=== PATIENT | male | born 1955 | race Caucasian/White ===

== ENCOUNTER 2017-01-26 06:46 | Inpatient (IN) | payer MEDICARE, MEDICAID ==
[~2017-01-26] VITALS: Ht 165.1 cm; Wt 93.0 kg
[~2017-01-26 06:46] MED LIST: AMLO5TAB4 PO; ASPI-664 PO; ATOR20TA38 PO; CALC667C PO; CLOP75TA4 PO; DOCU-144 PO; ERGO500014 PO; ISOS60TA PO; LANT3I SC; LEVO200T6 PO; LISI40TA9 PO; METO25TA7 PO; NIT4 SL; NOVO3I SC; POLY17PO6 PO; ROSU40TA35 PO; SEVE800T10 PO; VIT1TAB.4 PO
[2017-01-26 07:35] LABS: ADD SCAN DIFF NO
--- NOTE | 2017-01-26 07:36 | RADRPT ---
PROCEDURE: XR Chest. CLINICAL INDICATION: trauma TECHNIQUE: Portable single view of the chest COMPARISON: 11/14/2016 FINDINGS: Again seen are changes from median sternotomy and CABG with unipolar pacemaker. Cardiomegaly is aga in seen. Reduced lung volumes with pulmonary vascular congestion. Increased left base opacity may be due to cardiomegaly but underlying airspace disease cannot be excluded. No large effusion is see n. IMPRESSION: No significant interval change. Cardiomegaly. Slightly increased left retrocardiac opacity may all be due to cardiomegaly although underlying airspace disease cannot be completely excluded. Lateral view could be obtained if indicated clinically. RPTAT: [facility] Physician Charla Date Time Electronically viewed and signed by Mary Jo Chandler Physician on 01/26/2017 07:36 DONNA/
[2017-01-26 07:40] LABS: BASOPHIL # 0.1 10^3/ul (0.0-0.1); EOSINOPHILS # 0.3 10^3/ul (0.0-0.5); EOSINOPHILS % 2.4 % (0.0-7.0); HEMATOCRIT 31.7 % (42.0-52.0); HEMOGLOBIN 10.1 g/dl (14.0-18.0); LYMPHOCYTES # 1.9 10^3/ul (0.8-2.9); LYMPHOCYTES % 15.5 % (15.0-51.0); MEAN CORPUSCULAR HEMOGLOBIN 35.6 pg (29.0-33.0); MEAN CORPUSCULAR HGB CONC 31.9 g/dl (32.0-37.0); MEAN CORPUSCULAR VOLUME 111.6 fl (82.0-101.0); MEAN PLATELET VOLUME 10.7 fl (7.4-10.4); MONOCYTE # 1.3 10^3/ul (0.3-0.9); MONOCYTES % 10.3 % (0.0-11.0); NEUTROPHIL # 8.6 10^3/ul (1.6-7.5); NEUTROPHILS % 70.3 % (39.0-77.0); PLATELET COUNT 132 10^3/UL (140-415); RED BLOOD COUNT 2.84 10^6/ul (4.70-6.10); RED CELL DISTRIBUTION WIDTH 13.2 % (11.5-14.5); WHITE BLOOD COUNT 12.3 10^3/ul (4.8-10.8)
[2017-01-26 08:05] LABS: ALBUMIN 4.5 g/dl (3.3-4.9)
[2017-01-26 08:06] LABS: POTASSIUM 4.9 mmol/L (3.5-5.1)
[2017-01-26 08:08] LABS: ALBUMIN/GLOBULIN RATIO 1.36; BILIRUBIN,INDIRECT 0.1 mg/dl (0-1.1); BILIRUBIN,TOTAL 0.1 mg/dl (0.2-1.3); CREATININE 8.2 mg/dl (0.61-1.24); TOTAL PROTEIN 7.8 g/dl (6.1-8.1)
[2017-01-26 08:09] LABS: CALCIUM 10.7 mg/dl (8.4-10.2)
--- NOTE | 2017-01-26 08:12 | RADRPT ---
PROCEDURE: CT Brain without. CLINICAL INDICATION: Status post fall, concern for bleed, history of dementia. TECHNIQUE: A CT of the brain was performed on multidetector high-resolution CT scanner utilizing a xial sections from the skull base through the vertex without contrast. The scan was reviewed in sof t tissue brain and high frequency resolution bone algorithm windows. Images were reviewed on a high -resolution PACS workstation. One or more the following does reduction techniques were utilized: Aut omated exposure control, adjustment of the mA/ or kV according to patient's size, or use of iterativ e reconstruction technique. The exam CTDI = 39.64 mGy and the DLP = 634.23 mGy-cm. COMPARISON: Brain CT 04/29/2016. FINDINGS: Multiple images are degraded by motion. The ventricles and sulci are mildly to moderately prominent indicative of volume loss. There is no i ntracranial hemorrhage, mass effect or midline shift. No abnormal intra-axial or extra-axial fluid collections are seen. The barnhart/white matter differentiation is preserved. There are mild to moderate scattered foci of hypoattenuation in the white matter, which are nonspeci fic in etiology but likely reflect chronic small vessel ischemic changes. There are mild to moderat e intracranial vascular calcifications consistent with atherosclerosis. The visualized paranasal sin uses demonstrate moderate mucosal thickening of left sphenoid and bilateral maxillary sinuses. There is mucoperiosteal thickening of the right maxillary sinus. The mastoid air cells are essentially cl ear. IMPRESSION: 1. No acute intracranial hemorrhage, transcortical infarction or mass effect. 2. Mild to moderate intracranial atherosclerosis and chronic small vessel ischemic changes. 3. Mild to moderate generalized cerebral volume loss. 4. Moderate paranasal sinus disease. RPTAT: HH .Nora Agarwal MD, MD Date Time Electronically viewed and signed by .Nora Agarwal MD, MD on 01/26/2017 08:11 .N/
--- NOTE | 2017-01-26 08:20 | ERA ---
ER Documentation Chief Complaint Date/Time DATE: 01/26/17 TIME: 08:18 Chief Complaint ALOC, FALL THIS MORNING AT THE FACILITY. NO KO HPI 61-year-old man brought in by EMS from [facility] for decreased mental status. He has a history of dementia and intermittent recurrent agitation and for agitation today nurses administered clonazepam. After clonazepam he became more sedate and out of concern they called 911. Patient does have a history of end-stage kidney disease and was recently dialyzed. He has had no vomiting or diarrhea, no fevers or chills, no complaints of chest pain or shortness of breath. ROS All systems reviewed and are negative except as per history of present illness. Medications Home Meds Active Scripts Polyethylene Glycol* (Miralax*) 17 Gm Powd.pack, 17 GM PO DAILY, #7 Prov:ZAIRA JACOBSON MD 11/15/15 Docusate Sodium* (Colace*) 100 Mg Capsule, 100 MG PO TID, #30 CAP Prov:ZAIRA JACOBSON MD 11/15/15 Nitroglycerin* (Nitrostat*) 25 Tab Subl, 0.4 MG SL Q5M Y for ANGINA, #30 Prov:TAPAN MCCLELLAND 05/21/15 Isosorbide Mononitrate* (Isosorbide Mononitrate*) 60 Mg Tabsr, 60 MG PO DAILY for 30 Days Prov:TAPAN MCCLELLAND 05/21/15 Atorvastatin Calcium* (Atorvastatin Calcium*) 20 Mg Tab, 20 MG PO HS for 30 Days Prov:TAPAN MCCLELLAND 05/03/15 Aspirin* (Aspirin* EC) 81 Mg Tabec, 81 MG PO DAILY for 30 Days Prov:TAPAN MCCLELLAND 05/03/15 Reported Medications Lisinopril* (Lisinopril*) 40 Mg Tablet, 40 MG PO DAILY, TAB 08/02/15 Metoprolol Succinate* (Toprol XL*) 25 Mg Tab.sr.24h, 25 MG PO DAILY, TAB 06/09/15 Insulin Aspart* (Novolog Insulin Pen*) 100 Unit/Ml Soln, 3 UNIT SC WITH MEALS, EA 06/09/15 Amlodipine Besylate* (Norvasc*) 5 Mg Tablet, 5 MG PO BID, TAB 05/24/15 Sevelamer Hcl* (Renagel*) 800 Mg Tablet, 800 MG PO WITH MEALS, TAB 05/19/15 Vit B Complex & C No.13/Fa/D3 (NEPHROCAPS QT TABLET) 1 Each Tab.rapdis, 1 EACH PO DAILY 05/19/15 Levothyroxine Sodium* (Levothyroxine Sodium*) 200 Mcg Tablet, 200 MCG PO AC BREAKFAST, TAB 05/19/15 Insulin Glargine* (Lantus*) 100 Unit/Ml Soln, 10 UNIT SC QAM, EA 05/19/15 Ergocalciferol* (Drisdol* (Vitamin D2)) 50,000 Unit Capsule, 74218 UNIT PO Q14D , CAP 05/19/15 Rosuvastatin Calcium* (Crestor*) 40 Mg Tablet, 40 MG PO HS, TAB 05/19/15 Clopidogrel Bisulfate* (Clopidogrel Bisulfate*) 75 Mg Tablet, 75 MG PO DAILY, TAB 05/19/15 Calcium Acetate* (Calcium Acetate*) 667 Mg Capsule, 667 MG PO WITH MEALS, CAP 05/19/15 Allergies Allergies: Coded Allergies: oxycodone (Verified Allergy, Severe, 10/01/16) PMhx/Soc Hypothyroidism, diabetes mellitus, coronary artery disease status post coronary artery bypass graft, hypertension, end-stage kidney disease, dementia with agitation, left upper extremity brachiobasilic fistula for dialysis History of Surgery: Yes (CABBAGE AV fistula) Anesthesia Reaction: No Hx 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 Disorder: Yes (Dementia, CVA, TIA) Hx Respiratory Disorders: No Hx Cardiac Disorders: Yes (Heart surgery,HTN, CAD,Arrythmia) Hx Psychiatric Problems: Yes (Dementia) Hx Miscellaneous Medical Probl: Yes (renal fail (dialysis T//S) DM) Hx Alcohol Use: No Hx Substance Use: No Hx Tobacco Use: No Smoking Status: Never smoker FmHx Family History: diabetes Physical Exam Vitals Vital Signs Date Time Temp Pulse Resp B/P Pulse Ox O2 Delivery O2 Flow Rate FiO2 01/26/17 10:23 96.8 58 17 112/68 99 Room Air 01/26/17 09:57 96.8 72 16 160/90 98 Room Air 01/26/17 07:27 54 18 155/75 98 Room Air 01/26/17 06:56 98.2 82 18 203/92 98 Physical Exam GENERAL: Well-developed, well-nourished, appears dehydrated. Afebrile HEENT: Dry mucous membranes, pink conjunctiva, no cervical spine tenderness or step-off deformities, no goiter, no jaundice or icterus, extraocular movements intact without pain. No submandibular induration, and no pharyngeal erythema NEURO: Anal 1, eyes closed, pupils equal round reactive to light, no focal deficits or facial asymmetry CARDIAC: Regular rate and rhythm, no murmurs rubs or gallops LUNGS: Clear bilaterally no wheezing crackles or stridor ABDOMEN: Soft nontender, no guarding, no rigidity, no rebound, no psoas sign no obturator sign. Normoactive bowel sounds SKIN: Warm and dry to touch, no abrasions, contusions, or hematomas, no lacerations, no ecchymosis, no target lesions, and without ulcers EXTREMITIES: No clubbing cyanosis or edema, calves are bilaterally symmetrical, no Homans sign, no popliteal cord sign. Distal pulses equal and bilateral PSYCH: Normal affect without agitation or irritability Result Diagram: 01/26/1772301/26/17 0724 Results 24 hrs Laboratory Tests Test 01/26/17 07:24 Alanine Aminotransferase (ALT/SGPT) 19IU/L Albumin 4.5g/dl Albumin/Globulin Ratio 1.36 Alkaline Phosphatase 88IU/L Anion Gap 22 Aspartate Amino Transf (AST/SGOT) 21IU/L Basophils # 0.110^3/ul Basophils % 1.0% Blood Urea Nitrogen 40mg/dl Calcium Level 10.7mg/dl Carbon Dioxide Level 31mmol/L Chloride Level 98mmol/L Creatinine 8.20mg/dl Direct Bilirubin 0.00mg/dl Eosinophils # 0.310^3/ul Eosinophils % 2.4% Free Thyroxine 0.85ng/dl Globulin 3.30g/dl Glucose Level 143mg/dl Hematocrit 31.7% Hemoglobin 10.1g/dl Indirect Bilirubin 0.1mg/dl Lipase 73U/L Lymphocytes # 1.910^3/ul Lymphocytes % 15.5% Mean Corpuscular Hemoglobin 35.6pg Mean Corpuscular Hemoglobin Concent 31.9g/dl Mean Corpuscular Volume 111.6fl Mean Platelet Volume 10.7fl Monocytes # 1.310^3/ul Monocytes % 10.3% Neutrophils # 8.610^3/ul Neutrophils % 70.3% Nucleated Red Blood Cells # 0.010^3/ul Nucleated Red Blood Cells % 0.0/100WBC Platelet Count 04386^3/UL Potassium Level 4.9mmol/L Red Blood Count 2.8410^6/ul Red Cell Distribution Width 13.2% Sodium Level 146mmol/L Total Bilirubin 0.1mg/dl Total Protein 7.8g/dl Troponin I 0.056ng/ml White Blood Count 12.310^3/ul Procedures/MDM IV line was established patient was placed on insurance processing clerk rhythm strip revealed a wide-complex bradycardia 50 bpm. Patient was afebrile. One view chest x-ray performed, read by me revealed cardiomegaly and a pacemaker in the right chest with sternotomy wires, no acute infiltrates, no pneumothorax. EKG performed, read by me revealed a paced rhythm at 50 bpm, left axis deviation , no concerning ST elevations or depressions noted. CT scan of the brain was performed is negative for acute bleed mass or shift. One view chest x-ray performed, read by me there is cardiomegaly and atelectatic changes bilaterally, no acute infiltrates, no pneumothorax. CBC was unremarkable, electrolytes revealed chronic kidney injury, troponin was negative, liver function tests were unremarkable. Patient will be admitted to [facility] for continued medical management and observation. Departure Diagnosis: Primary Impression: Altered level of consciousness Additional Impressions: End stage kidney disease Benzodiazepine overdose Qualified Code: T42.4X1A - Benzodiazepine overdose, accidental or unintentional, initial encounter Alzheimer's dementia Qualified Code: G30.8 - Alzheimer's dementia with behavioral disturbance, unspecified timing of dementia onset Condition: MELISA Givens MD Jan 26, 2017 08:20
[2017-01-26 08:21] LABS: TROPONIN-I 0.056 ng/ml (0.00-0.12)
[2017-01-26 10:23] VITALS: TEMP 96.8
[2017-01-26] MEDS: ASPIRIN (EC) 81 MG TAB PO SCH ×3 (10:54→14:34)
[2017-01-26] MEDS: CLOPIDOGREL 75 MG TAB PO SCH ×3 (10:54→14:34)
[2017-01-26 10:58] VITALS: Ht 165.1 cm; Wt 93.0 kg
[2017-01-26] MEDS ORDERED: NACL 0.9% 3 ML SYG IV SCH (11:00)
[2017-01-26] MEDS ORDERED: ONDANSETRON 4 MG INJ IV PRN (11:00)
[2017-01-26] MEDS ORDERED: NITROGLYCERIN (SL) 0.4 MG TAB SL PRN (11:00)
[2017-01-26] MEDS ORDERED: ACETAMINOPHEN 325 MG TAB PO PRN (11:00)
[2017-01-26] MEDS ORDERED: DOCUSATE SODIUM 100 MG CAP PO PRN (11:00)
[2017-01-26] MEDS ORDERED: GLUCOSE GEL 15 GRAM TUBE PO PRN ×2 (11:00)
[2017-01-26] MEDS ORDERED: GLUCOSE GEL 15 GRAM TUBE BUCCAL PRN (11:00)
[2017-01-26] MEDS ORDERED: ALBUTEROL/IPRATROPIUM (NEB) 3 ML AMP HHN PRN (11:00)
[2017-01-26] MEDS ORDERED: NA PHOSPHATE/BIPHOS 133 ML ENEMA PR PRN (11:00)
[2017-01-26] MEDS ORDERED: hydrALAzine 20 MG INJ IV PRN (11:00)
[2017-01-26] MEDS ORDERED: MAGNESIUM HYDROXIDE 30ML CUP PO PRN (11:00)
[2017-01-26] MEDS ORDERED: GLUCAGON 1 MG INJ IM PRN (11:00)
[2017-01-26] MEDS ORDERED: DEXTROSE 50% 50 ML SYRINGE IV PRN ×2 (11:00)
[2017-01-26 11:15] VITALS: BP 164/77; PULSE 52; RESP 18
[2017-01-26] MEDS: INSULIN ASPART [NOVOLOG] 3 ML PEN SC SCH ×2 (11:30→17:35)
[2017-01-26] MEDS: SEVELAMER 800 MG TAB PO SCH ×2 (11:30→17:35)
[2017-01-26] MEDS: MULTIVIT/CA CARB/B CMPLX/FA TAB PO SCH ×3 (12:00→14:34)
[2017-01-26] MEDS: SOD CHLORIDE 0.45% 1,000 ML IV SCH (14:12)
--- NOTE | 2017-01-26 17:39 | HP ---
Date/Time of Note Date/Time of Note DATE: 01/26/17 TIME: 17:35 Assessment/Plan VTE Prophylaxis VTE Prophylaxis Intervention: SCD's Lines/Catheters IV C[facility]ter [facility]from [facility] Saline Lock Urinary Cath still in place: No Assessment/Plan Chief Complaint/Hosp Course Impression and plan 1. Altered level of consciousness. Likely exacerbation of underlying dementia mixed with proposed benzodiazepine overdose. Patient more alert at this time. Continue IV hydration. Check reeder cultures to rule out any other etiology. Of note CT scan of the brain was negative for any acute intracranial finding. Continue neuro checks. Sitter at bedside. 2. History of CAD status post CABG. Continue antiplatelet therapy. Continue optimization of his cardiovascular medications. 3. History of diabetes mellitus. Follow-up on A1c. Continue insulin regimen. Will adjust as needed. 4. Hypertension. Will provide with antihypertensives and adjust as needed 5. Dyspnea. Continue on statin medication 6. End-stage renal disease. Nephrology is consulted. Plan for dialysis per nephrology. Admission process 40 minutes Discussed plan of care with Dr. Bhardwaj Problems: HPI/ROS Admit Date/Time Admit Date/Time Jan 26, 2017 at 10:31 Hx of Present Illness This is a 61-year-old male with history of end-stage renal disease, on dialysis , coronary artery disease status post CABG, dementia, psych disorder, who [facility] secondary to altered level of consciousness. Patient does have history of agitation and from report patient was agitated and nurses at the [facility] went forward with providing the patient with giving benzodiazepine. Patient at that moment became more altered and was brought in by [facility]. Of note for history not fully obtained as patient is not alert or oriented. He only speaks patient is able to make full sentences but is incoherent. On further examination patient did have CT scan of the brain that was negative for any acute intracranial hemorrhage or infarction or mass-effect. There was a moderate intracranial atherosclerosis and chronic small vessel ischemic changes. There is also seen mild to moderate generalized cerebral volume loss. Patient was seen with some leukocytosis however likely reactive. Patient remains afebrile. Noted with some hypertension likely secondary to his agitation. On presentation patient appeared much calmer. He was reported to be abusive to the nurses. We will evaluate him for the aforementioned issues ROS 12 point review of systems obtained and entirely negative except mentioned in history of present illness PMH/Family/Social Past Medical History Medical/surgical history end-stage renal disease, on dialysis, coronary artery disease status post CABG, dementia, psych disorder Past Surgical History Past Surgical Hx: coronary bypass surgery Social History Smoking Status: Never smoker Exam/Review of Systems Vital Signs Vitals Vital Signs Date Time Temp Pulse Resp B/P Pulse Ox O2 Delivery O2 Flow Rate FiO2 01/26/17 11:15 97.5 52 18 164/77 96 Room Air Exam Exam General: More calm. Alert to verbal response. Eyes: Pupils equal round reactive to light Neck: Supple nontender, no JVD Cardiac: S1-S2 auscultated regular rate Pulmonary: Minimally diminished at lung bases GI: Soft nontender nondistended Extremities: Noted with left AV fistula on upper extremity of left side Skin: [Clean dry and intact] Neurologic: Alert to self. Disoriented to situation place and time Labs Result Diagram: 01/26/1724 01/26/17 0724 Medications Medications Current Medications Ondansetron HCl (Zofran Inj) 4 mg Q6H PRN IV NAUSEA AND/OR VOMITING; Start 01/26 at 11:00 Acetaminophen (Tylenol Tab) 650 mg Q6H PRN PO PAIN LEVEL 1-3 OR FEVER; Start at 11:00 Acetaminophen/ Hydrocodone Bitart (Vernal (5/325)) 1 tab Q6H PRN PO MODERATE PAIN LEVEL 4-6; Start 01/26/17 at 11:00 Morphine Sulfate (morphine) 2 mg Q4H PRN IV SEVERE PAIN LEVEL 7-10; Start at 11:00 Docusate Sodium (Colace) 100 mg Q12H PRN PO CONSTIPATION; Start 01/26/17 at 11: 00 Magnesium Hydroxide (Milk Of Mag) 30 ml DAILY PRN PO CONSTIPATION; Start at 11:00 Sodium Biphosphate/ Sodium Phosphate (Fleet Enema) 133 ml DAILY PRN [place] CONSTIPATION; Start 01/26/17 at 11:00 Pantoprazole 40 mg 40 mg DAILY@06 IV ; Start 01/27/17 at 06:00 Sodium Chloride (1/2 NS) 1,000 ml @ 75 mls/hr [id number] IV Last administered on 01/26/17t 14:12; Admin Dose 75 MLS/HR; Start 01/26/17 at 10:40 Hydralazine HCl (Apresoline) 10 mg Q6H PRN IV ELEVATED BLOOD PRESSURE; Start at 11:00 Nitroglycerin (Nitroglycerin (Sl Tab) 0.4 Mg) 1 tab Q5M PRN SL ANGINA; Start at 11:00 Aspirin (Halfprin) 81 mg DAILY PO ; Start 01/26/17 at 10:54 Clopidogrel Bisulfate (plaVIX) 75 mg DAILY PO ; Start 01/26/17 at 10:54 Insulin Glargine (Lantus) 10 unit QAM SC ; Start 01/27/17 at 09:00 Rosuvastatin Calcium (Crestor) 40 mg HS PO ; Start 01/26/17 at 21:00 Multivit/Ca Carb/ B Cmplx/FA/Prenat (Muna-Suraj) 1 tab DAILY PO ; Start 01/26/17 at 12:00 Miscellaneous Information 1 ea NOTE XX ; Start 01/26/17 at 11:00 Glucose (Glutose) 15 gm Q15M PRN PO DECREASED GLUCOSE; Start 01/26/17 at 11:00 Glucose (Glutose) 22.5 gm Q15M PRN PO DECREASED GLUCOSE; Start 01/26/17 at 11:00 Dextrose (D50w Syringe) 25 ml Q15M PRN IV DECREASED GLUCOSE; Start 01/26/17 at 11:00 Dextrose (D50w Syringe) 50 ml Q15M PRN IV DECREASED GLUCOSE; Start 01/26/17 at 11:00 Glucagon (Glucagen) 1 mg Q15M PRN IM DECREASED GLUCOSE; Start 01/26/17 at 11:00 Glucose (Glutose) 15 gm Q15M PRN BUCCAL DECREASED GLUCOSE; Start 01/26/17 at 11: 00 Olanzapine (Zyprexa) 10 mg DAILY PO ; Start 01/26/17 at 17:30 TAPAN MCCLELLAND Jan 26, 2017 17:39
[2017-01-26] MEDS: OLANZAPINE 5 MG TAB PO SCH (17:53)
[2017-01-26] MEDS: ROSUVASTATIN CALCIUM 40 MG TABLET PO SCH (21:00)
[2017-01-26 21:39] VITALS: BP 134/68; PULSE 55; RESP 18
[2017-01-27] VITALS (11 sets, daily range): BP systolic 100–190; BP diastolic 55–109; PULSE 62–81; RESP 20
[2017-01-27] MEDS: PANTOPRAZOLE 40 MG INJ IV SCH (05:28)
[2017-01-27 06:23] LABS: ADD SCAN DIFF NO
[2017-01-27 06:42] LABS: POTASSIUM 4.8 mmol/L (3.5-5.1)
[2017-01-27 06:45] LABS: CREATININE 8.9 mg/dl (0.61-1.24)
[2017-01-27 06:46] LABS: CHOL/HDL RATIO 2.4 RATIO; MAGNESIUM 2.7 mg/dl (1.7-2.5); PHOSPHORUS 2.2 mg/dl (2.5-4.9)
[2017-01-27 06:53] LABS: BASOPHIL # 0.1 10^3/ul (0.0-0.1); BASOPHILS % 0.8 % (0.0-2.0); EOSINOPHILS # 0.2 10^3/ul (0.0-0.5); EOSINOPHILS % 1.1 % (0.0-7.0); HEMATOCRIT 30.4 % (42.0-52.0); HEMOGLOBIN 9.9 g/dl (14.0-18.0); LYMPHOCYTES % 6.9 % (15.0-51.0); MEAN CORPUSCULAR HEMOGLOBIN 35.5 pg (29.0-33.0); MEAN CORPUSCULAR HGB CONC 32.6 g/dl (32.0-37.0); MEAN PLATELET VOLUME 10.9 fl (7.4-10.4); MONOCYTE # 0.8 10^3/ul (0.3-0.9); MONOCYTES % 5.8 % (0.0-11.0); NEUTROPHIL # 11.9 10^3/ul (1.6-7.5); PLATELET COUNT 143 10^3/UL (140-415); RED BLOOD COUNT 2.79 10^6/ul (4.70-6.10); RED CELL DISTRIBUTION WIDTH 13.2 % (11.5-14.5)
[2017-01-27 07:17] LABS: THYROID STIMULATING HORMONE 34.5 MIU/L (0.465-4.680)
[2017-01-27] MEDS: INSULIN ASPART [NOVOLOG] 3 ML PEN SC SCH ×3 (07:35→17:35)
[2017-01-27] MEDS: SOD CHLORIDE 0.45% 1,000 ML IV SCH ×2 (07:53)
[2017-01-27] MEDS: INSULIN GLARGINE [LANtus] 3 ML PEN SC SCH (08:39)
[2017-01-27] MEDS: OLANZAPINE 5 MG TAB PO SCH (13:28)
--- NOTE | 2017-01-27 14:12 | CONS ---
DATE OF ADMISSION: 01/26/2017 DATE OF CONSULTATION: 01/27/2017 TYPE OF CONSULTATION: HISTORY OF PRESENT ILLNESS: The patient is a 61-year-old man with past history of end-sta ge renal disease, who apparently has been on hemodialysis for several years. Patient is dialyzed vi a a left upper arm AV fistula. His last hemodialysis was probably 3 days ago. He is a resident of a [facility] [place] [facility], and apparently has a history of dementia and agitation. According to the emergency room physician, the patient was administered clonazepam due to agitation, became more sed ated. 911 was called. He was brought to the [facility] Emergency Room. In the ER, the damian hemphill became more responsive. A CT scan of the brain revealed no acute lesions, and he was admitted to a medical floor. The patient also has a past history of hypertension, diabetes, and hypothyroid ism. PAST MEDICAL HISTORY: 1. End-stage renal disease. 2. Diabetes mellitus. 3. Hypothyroidism. 4. Coronary artery disease. 5. CVA. 6. Hypertension. PAST SURGICAL HISTORY: 1. CABG. 2. Pacemaker. 3. AV fistula creation. FAMILY HISTORY: Not obtainable. SOCIAL HISTORY: Per the chart, the patient is a former smoker. MEDICATIONS: 1. Lantus insulin. 2. Pantoprazole. 3. Crestor. 4. Zyprexa. 5. Muna-Suraj. 6. NovoLog. 7. Sevelamer. PHYSICAL EXAMINATION: VITAL SIGNS: Blood pressure 158/109, heart rate is 67, temperature is 97.9. GENERAL APPEARANCE: Reveals an elderly male, no distress. The patient is lethargic. He is arousab le. He is able to answer some simple questions, but is confused. Mouth reveals moist mucosa. NECK: Supple. CHEST: Lungs clear to auscultation. CARDIAC: Regular rate and rhythm. Normal S1, normal S2. ABDOMEN: Soft, nontender. EXTREMITIES: Without edema. There is a functioning fistula in the left upper extremity. LABORATORY DATA: Hemoglobin is 9.9, hematocrit is 30.4, white blood cell count of 14,000, platelet count is 143,000. Sodium is 143, potassium is 4.8, chloride is 99, CO2 27, BUN is 46, creatinine is 8.9, phosphorus is 2.2. TSH is 34.5. IMAGING: Chest x-ray revealed no significant interval change compared to 11/14/2016. There was car diomegaly as well as slightly increased left retrocardiac opacity, which may be due to cardiomegaly, although underlying airspace disease cannot be completely excluded. CT scan of the brain revealed mild to moderate intracranial atherosclerosis and chronic small vessel changes, as well as mild to m oderate generalized cerebral volume loss and moderate paranasal sinus disease. IMPRESSION: 1. Altered mental status. The patient apparently has a history of dementia and received clonazepam yesterday. It is unclear at this time if he is back to his baseline mental status. 2. End-stage renal disease. The current electrolytes appear stable. The patient will be scheduled for dialysis today. 3. Leukocytosis. There is no fever. Blood cultures will be obtained. 4. Elevated TSH with history of hypothyroidism to be managed by the primary care team. 5. Diabetes mellitus with controlled blood sugars. 6. Hypertension. The patient's blood pressure has been labile, and it will be treated p.r.n. at th is point. 7. Hypophosphatemia. PLAN: 1. Hemodialysis today. 2. Discontinue sevelamer for now. 3. Treatment of hypothyroidism . 4. Continue insulin. 5. Monitor blood pressure and treat p.r.n. Dictated By: DARIN RAMIREZ/MAIRA Conf#: [id number] DID#: [id number]
--- NOTE | 2017-01-27 15:04 | PN ---
Date/Time of Note Date/Time of Note DATE: 01/27/17 TIME: 14:59 Assessment/Plan VTE Prophylaxis VTE Prophylaxis Intervention: SCD's Lines/Catheters IV Catheter Type (from [facility]): [place] [facility] Urinary Cath still in place: No Assessment/Plan Chief Complaint/Hosp Course Impression and plan 1. Altered level of consciousness. Likely exacerbation of underlying dementia mixed with proposed benzodiazepine overdose. Patient more alert at this time. Continue IV hydration. reeder cultures pending. Of note CT scan of the brain was negative for any acute intracranial finding. Continue neuro checks. Sitter remains at bedside. 2. History of CAD status post CABG. Continue antiplatelet therapy. Continue optimization of his cardiovascular medications. 3. History of diabetes mellitus.. Continue insulin regimen. Will adjust as needed. 4. Hypertension. Will provide with antihypertensives and adjust as needed 5. Dyspnea. Continue on statin medication 6. End-stage renal disease. Nephrology is consulted. Plan for dialysis per nephrology. DISPO/PLAN: ST to evaluate for swallow. noted with rise in wbc. reeder cultures pending. plan for HD today. Await clinical improvement. PT/OT to follow. await recs Discussed plan of care with Dr. Bhardwaj Problems: Subjective 24 Hr Interval Summary Free Text/Dictation still confused at times, less agitated Exam/Review of Systems Vital Signs Vitals Vital Signs Date Time Temp Pulse Resp B/P Pulse Ox O2 Delivery O2 Flow Rate FiO2 01/27/17 07:48 97.9 67 20 158/109 93 01/27/17 06:15 Nasal Cannula 2.0 Intake and Output 01/26/17 01/26/17 01/27/17 15:00 23:00 07:00 Intake Total 0 ml 750 ml Balance 0 ml 750 ml Exam General: no s/s of distress Eyes: Pupils equal round reactive to light Neck: no JVD Cardiac: S1-S2 auscultated regular rate Pulmonary: no wheezing/rhonchi GI: Soft nontender nondistended Extremities: Noted with left AV fistula on upper extremity of left side Skin: CDI Neurologic: Alert to self. Disoriented to situation place and time still Results Result Diagram: 01/27/17 0420 01/27/17 0420 Results 24 hrs Laboratory Tests Test 01/26/17 17:56 01/27/17 04:20 01/27/17 07:43 01/27/17 12:05 Bedside Glucose 128 120 104 Anion Gap 22 H Basophils # 0.1 Basophils % 0.8 Blood Urea Nitrogen 46 H Calcium Level 10.0 Carbon Dioxide Level 27 Chloride Level 99 Cholesterol Level 118 Cholesterol/HDL Ratio 2.4 Creatinine 8.90 H Eosinophils # 0.2 Eosinophils % 1.1 Glucose Level 110 HDL Cholesterol 48 Hematocrit 30.4 L Hemoglobin 9.9 L Hemoglobin A1c 6.1 H LDL Cholesterol, Calculated 48 Lymphocytes # 1.0 Lymphocytes % 6.9 L Magnesium Level 2.7 H Mean Corpuscular Hemoglobin 35.5 H Mean Corpuscular Hemoglobin Concent 32.6 Mean Corpuscular Volume 109.0 H Mean Platelet Volume 10.9 H Monocytes # 0.8 Monocytes % 5.8 Neutrophils # 11.9 H Neutrophils % 85.0 H Nucleated Red Blood Cells # 0.0 Nucleated Red Blood Cells % 0.0 Phosphorus Level 2.2 L Platelet Count 143 Potassium Level 4.8 Red Blood Count 2.79 L Red Cell Distribution Width 13.2 Sodium Level 143 Thyroid Stimulating Hormone (TSH) 34.500 H Triglycerides Level 108 White Blood Count 14.0 H Medications Medications Current Medications Ondansetron HCl (Zofran Inj) 4 mg Q6H PRN IV NAUSEA AND/OR VOMITING; Start 01/26 at 11:00 Acetaminophen (Tylenol Tab) 650 mg Q6H PRN PO PAIN LEVEL 1-3 OR FEVER; Start at 11:00 Acetaminophen/ Hydrocodone Bitart ([place] (5/325)) 1 tab Q6H PRN PO MODERATE PAIN LEVEL 4-6; Start 01/26/17 at 11:00 Morphine Sulfate (morphine) 2 mg Q4H PRN IV SEVERE PAIN LEVEL 7-10; Start at 11:00 Docusate Sodium (Colace) 100 mg Q12H PRN PO CONSTIPATION; Start 01/26/17 at 11: 00 Pantoprazole 40 mg 40 mg DAILY@06 IV Last administered on 01/27/17 05:28; Admin Dose 40 MG; Start 01/27/17 at 06:00 Sodium Chloride (1/2 NS) 1,000 ml @ 50 mls/hr Q20H IV Last administered on 01/27 07:53; Admin Dose 75 MLS/HR; Start 01/26/17 at 10:40 Hydralazine HCl (Apresoline) 10 mg Q6H PRN IV ELEVATED BLOOD PRESSURE; Start at 11:00 Nitroglycerin (Nitroglycerin (Sl Tab) 0.4 Mg) 1 tab Q5M PRN SL ANGINA; Start at 11:00 Aspirin (Halfprin) 81 mg DAILY PO ; Start 01/26/17 at 10:54 Clopidogrel Bisulfate (plaVIX) 75 mg DAILY PO ; Start 01/26/17 at 10:54 Insulin Glargine (Lantus) 10 unit QAM SC ; Start 01/27/17 at 09:00 Rosuvastatin Calcium (Crestor) 40 mg HS PO ; Start 01/26/17 at 21:00 Multivit/Ca Carb/ B Cmplx/FA/Prenat (Muna-Suraj) 1 tab DAILY PO ; Start 01/26/17 at 12:00 Miscellaneous Information 1 ea NOTE XX ; Start 01/26/17 at 11:00 Glucose (Glutose) 15 gm Q15M PRN PO DECREASED GLUCOSE; Start 01/26/17 at 11:00 Glucose (Glutose) 22.5 gm Q15M PRN PO DECREASED GLUCOSE; Start 01/26/17 at 11:00 Dextrose (D50w Syringe) 25 ml Q15M PRN IV DECREASED GLUCOSE; Start 01/26/17 at 11:00 Dextrose (D50w Syringe) 50 ml Q15M PRN IV DECREASED GLUCOSE; Start 01/26/17 at 11:00 Glucagon (Glucagen) 1 mg Q15M PRN IM DECREASED GLUCOSE; Start 01/26/17 at 11:00 Glucose (Glutose) 15 gm Q15M PRN BUCCAL DECREASED GLUCOSE; Start 01/26/17 at 11: 00 Olanzapine (Zyprexa) 10 mg DAILY PO Last administered on 01/27/17 13:28; Admin Dose 10 MG; Start 01/26/17 at 17:30 TAPAN MCCLELLAND Jan 27, 2017 15:04
[2017-01-27] MEDS: ROSUVASTATIN CALCIUM 40 MG TABLET PO SCH (21:00)
[2017-01-28] MEDS: morphine 2 MG INJ IV PRN (02:00)
[2017-01-28 04:00] VITALS: BP 162/74; RESP 18
[2017-01-28] MEDS: PANTOPRAZOLE 40 MG INJ IV SCH (05:31)
[2017-01-28 05:53] LABS: ADD SCAN DIFF NO
[2017-01-28 05:59] LABS: BASOPHIL # 0.1 10^3/ul (0.0-0.1); BASOPHILS % 1.1 % (0.0-2.0); EOSINOPHILS # 0.1 10^3/ul (0.0-0.5); EOSINOPHILS % 0.7 % (0.0-7.0); HEMATOCRIT 29.4 % (42.0-52.0); HEMOGLOBIN 9.7 g/dl (14.0-18.0); LYMPHOCYTES # 1.8 10^3/ul (0.8-2.9); LYMPHOCYTES % 18.1 % (15.0-51.0); MEAN CORPUSCULAR HEMOGLOBIN 35.9 pg (29.0-33.0); MEAN CORPUSCULAR VOLUME 108.9 fl (82.0-101.0); MEAN PLATELET VOLUME 10.8 fl (7.4-10.4); MONOCYTES % 10.4 % (0.0-11.0); NEUTROPHIL # 6.8 10^3/ul (1.6-7.5); NEUTROPHILS % 69.4 % (39.0-77.0); PLATELET COUNT 134 10^3/UL (140-415); RED CELL DISTRIBUTION WIDTH 12.9 % (11.5-14.5); WHITE BLOOD COUNT 9.8 10^3/ul (4.8-10.8)
[2017-01-28 06:14] LABS: ALBUMIN 4.1 g/dl (3.3-4.9)
[2017-01-28 06:15] LABS: POTASSIUM 4.1 mmol/L (3.5-5.1)
[2017-01-28 06:17] LABS: ALBUMIN/GLOBULIN RATIO 1.2; BILIRUBIN,INDIRECT 1.1 mg/dl (0-1.1); BILIRUBIN,TOTAL 1.1 mg/dl (0.2-1.3); CALCIUM 9.5 mg/dl (8.4-10.2); CREATININE 6.69 mg/dl (0.61-1.24); TOTAL PROTEIN 7.5 g/dl (6.1-8.1)
[2017-01-28 07:15] VITALS: BP 159/60; RESP 18
[2017-01-28] MEDS: INSULIN ASPART [NOVOLOG] 3 ML PEN SC SCH ×3 (07:35→20:50)
[2017-01-28 08:40] LABS: ADD UMIC YES; URINE BILIRUBIN (Dip) NEGATIVE (NEGATIVE); URINE BLOOD (Dip) TRACE (NEGATIVE); URINE COLOR LT. YELLOW (YELLOW); URINE KETONES (Dip) TRACE (NEGATIVE); URINE LEUKOCYTE ESTERASE (Dip) NEGATIVE (NEGATIVE); URINE NITRITE (Dip) NEGATIVE (NEGATIVE); URINE TOTAL PROTEIN (Dip) 2+ (NEGATIVE); URINE UROBILINOGEN (Dip) 0.2 E.U./dL (0.1-1.0)
[2017-01-28] MEDS: MULTIVIT/CA CARB/B CMPLX/FA TAB PO SCH (08:49)
[2017-01-28] MEDS: OLANZAPINE 5 MG TAB PO SCH (08:49)
[2017-01-28] MEDS: HYDROCODONE/APAP (5/325) TAB PO PRN (08:49)
[2017-01-28] MEDS: ASPIRIN (EC) 81 MG TAB PO SCH (08:49)
[2017-01-28] MEDS: CLOPIDOGREL 75 MG TAB PO SCH (08:49)
[2017-01-28 08:54] LABS: URINE RBCS 0-2 /HPF (0)
[2017-01-28 08:55] LABS: SQUAMOUS EPITHELIAL CELL,UR FEW
[2017-01-28] MEDS: INSULIN GLARGINE [LANtus] 3 ML PEN SC SCH (09:00)
--- NOTE | 2017-01-28 13:05 | CONS ---
Date/Time of Note Date/Time of Note DATE: 01/28/17 TIME: 13:00 Assessment/Plan Assessment/Plan Chief Complaint/Hosp Course 1. This patient has end-stage renal disease and is on maintenance hemodialysis at the [facility] unit Saturday. The patient is due for dialysis tomorrow and I ordered dialysis for tomorrow.. I did call the [facility] dialysis unit and found out that the patient is under the care of a vacuum pan tender named Alo Pacheco 2. The patient is lethargic he does arouse some to verbal stimuli but is unable to give me any history. He does have a diagnosis of dementia and apparently came in with altered mental status and was thought to be overdosed on benzodiazepines. 3. The patient has not been eating. He is also getting insulin. I discontinued insulin fixed doses and put him on just sliding scale. I also started an IV of D5 half-normal saline. 4. DM 5. HTN 6. CAD Problems: Consultation Date/Type/Reason Admit Date/Time Jan 26, 2017 at 10:31 Initial Consult Date 24 HR Interval Summary Free Text/Dictation Patient is lethargic. He is confused. Exam/Review of Systems Vital Signs Vitals Vital Signs Date Time Temp Pulse Resp B/P Pulse Ox O2 Delivery O2 Flow Rate FiO2 01/28/17 07:15 98.0 52 18 159/60 99 01/28/17 04:00 Nasal Cannula 2.0 Intake and Output 01/27/17 01/27/17 01/28/17 15:00 23:00 07:00 Intake Total 645 ml 675 ml Output Total 3875 ml Balance 645 ml -3200 ml Exam Psych: confusion Respiratory: clear to auscultation, diminished breath sounds Cardiovascular: regular rate and rhythm Musculoskeletal: nl extremities to inspection Results Result Diagram: 01/28/17 0505 01/28/17 0505 Results 24 hrs Laboratory Tests Test 01/27/17 17:18 01/27/17 22:00 01/28/17 05:05 01/28/17 07:42 Bedside Glucose 118 126 Urine Bilirubin NEGATIVE Urine Clarity CLEAR Urine Color LT. YELLOW Urine Glucose 0.1% H Urine Hemoglobin TRACE Urine Ketones TRACE Urine Leukocyte Esterase NEGATIVE Urine Microscopic RBC 0-2 Urine Microscopic WBC 0-2 Urine Nitrite NEGATIVE Urine Specific [place] 1.020 Urine Squamous Epithelial Cells FEW Urine Total Protein 2+ H Urine Urobilinogen 0.2 E.U./dL Urine pH 8.0 Alanine Aminotransferase (ALT/SGPT) 22 Albumin 4.1 Albumin/Globulin Ratio 1.20 Alkaline Phosphatase 90 Anion Gap 17 H Aspartate Amino Transf (AST/SGOT) 25 Basophils # 0.1 Basophils % 1.1 Blood Urea Nitrogen 33 #H Calcium Level 9.5 Carbon Dioxide Level 32 H Chloride Level 95 L Creatinine 6.69 #H Direct Bilirubin 0.00 Eosinophils # 0.1 Eosinophils % 0.7 Globulin 3.40 H Glucose Level 135 Hematocrit 29.4 L Hemoglobin 9.7 L Indirect Bilirubin 1.1 Lymphocytes # 1.8 Lymphocytes % 18.1 Mean Corpuscular Hemoglobin 35.9 H Mean Corpuscular Hemoglobin Concent 33.0 Mean Corpuscular Volume 108.9 H Mean Platelet Volume 10.8 H Monocytes # 1.0 H Monocytes % 10.4 Neutrophils # 6.8 Neutrophils % 69.4 Nucleated Red Blood Cells # 0.0 Nucleated Red Blood Cells % 0.0 Platelet Count 134 L Potassium Level 4.1 Red Blood Count 2.70 L Red Cell Distribution Width 12.9 Sodium Level 140 Total Bilirubin 1.1 Total Protein 7.5 White Blood Count 9.8 # Test 01/28/17 11:31 Bedside Glucose 125 Medications Medications Current Medications Ondansetron HCl (Zofran Inj) 4 mg Q6H PRN IV NAUSEA AND/OR VOMITING; Start 01/26 at 11:00 Acetaminophen (Tylenol Tab) 650 mg Q6H PRN PO PAIN LEVEL 1-3 OR FEVER; Start at 11:00 Acetaminophen/ Hydrocodone Bitart ([place] (5/325)) 1 tab Q6H PRN PO MODERATE PAIN LEVEL 4-6 Last administered on 01/28/17 08:49; Admin Dose 1 TAB; Start 01/26 at 11:00 Morphine Sulfate (morphine) 2 mg Q4H PRN IV SEVERE PAIN LEVEL 7-10 Last administered on 01/28/17 02:00; Admin Dose 2 MG; Start 01/26/17 at 11:00 Docusate Sodium (Colace) 100 mg Q12H PRN PO CONSTIPATION; Start 01/26/17 at 11: 00 Pantoprazole (Protonix Iv) 40 mg DAILY@06 IV Last administered on 01/28/17 05: 31; Admin Dose 40 MG; Start 01/27/17 at 06:00 Hydralazine HCl (Apresoline) 10 mg Q6H PRN IV ELEVATED BLOOD PRESSURE; Start at 11:00 Nitroglycerin (Nitroglycerin (Sl Tab) 0.4 Mg) 1 tab Q5M PRN SL ANGINA; Start at 11:00 Aspirin (Halfprin) 81 mg DAILY PO Last administered on 01/28/17 08:49; Admin Dose 81 MG; Start 01/26/17 at 10:54 Clopidogrel Bisulfate (plaVIX) 75 mg DAILY PO Last administered on 01/28/17 08: 49; Admin Dose 75 MG; Start 01/26/17 at 10:54 Rosuvastatin Calcium (Crestor) 40 mg HS PO ; Start 01/26/17 at 21:00 Multivit/Ca Carb/ B Cmplx/FA/Prenat (Muna-Suraj) 1 tab DAILY PO Last administered on 01/28/17 08:49; Admin Dose 1 TAB; Start 01/26/17 at 12:00 Miscellaneous Information 1 ea NOTE XX ; Start 01/26/17 at 11:00 Glucose (Glutose) 15 gm Q15M PRN PO DECREASED GLUCOSE; Start 01/26/17 at 11:00 Glucose (Glutose) 22.5 gm Q15M PRN PO DECREASED GLUCOSE; Start 01/26/17 at 11:00 Dextrose (D50w Syringe) 25 ml Q15M PRN IV DECREASED GLUCOSE; Start 01/26/17 at 11:00 Dextrose (D50w Syringe) 50 ml Q15M PRN IV DECREASED GLUCOSE; Start 01/26/17 at 11:00 Glucagon (Glucagen) 1 mg Q15M PRN IM DECREASED GLUCOSE; Start 01/26/17 at 11:00 Glucose (Glutose) 15 gm Q15M PRN BUCCAL DECREASED GLUCOSE; Start 01/26/17 at 11: 00 Olanzapine 10 mg 10 mg DAILY PO Last administered on 01/28/17 08:49; Admin Dose 10 MG; Start 01/26/17 at 17:30 Dextrose/Sodium Chloride (D5-1/2ns) 1,000 ml @ 50 mls/hr Q20H IV ; Start at 13:00; Status NELY TEIXEIRA MD Jan 28, 2017 13:05
[2017-01-28] MEDS: DEXTROSE 5%-0.45% NACL 1,000 ML IV SCH (13:43)
[2017-01-28] MEDS ORDERED: Discontinue Glyburide, Glipizide, and/or Glimepiride prior to starting Insulin XX ONE (15:00)
[2017-01-28] MEDS ORDERED: HYPOGLYCEMIA PROTOCOL when Glucose is <70 mg/dL or symptomatic <90 mg/dL. XX ONE (15:00)
--- NOTE | 2017-01-28 17:06 | PN ---
DATE: 01/28/2017 TIME OF EVALUATION: 1413. SUBJECTIVE DATA: The patient remained calm. Denies any pain. OBJECTIVE DATA: VITAL SIGNS: Temperature 98.0, pulse rate 52, respiratory rate 18, blood pressure 159/60, oxygen saturation 99% on low flow O2. GENERAL: This is an obese male patient lying in bed in no apparent distress. HEENT: Head normocephalic and atraumatic. Eyes: Anicteric sclerae. Conjunctivae clear. ENT: Nasal septum is midline. Oral mucosa is dry. NECK: Supple. No JVD noticed. RESPIRATORY: Bilaterally clear to auscultation. No adventitious breath sounds heard. No use of accessory muscles of respiration. CARDIAC: Regular rate and rhythm. No obvious murmurs heard. A median sternotomy scar. ABDOMEN: Soft, nontender and nondistended. Bowel sounds hypoactive in all 4 quadrants. GENITOURINARY: Deferred. EXTREMITIES: No cyanosis, no clubbing, no edema. Peripheral pulses palpable. NEUROLOGIC: The patient is awake and alert. Oriented x2. LABORATORY AND DIAGNOSTIC DATA: WBC 9.8, hemoglobin 9.7, hematocrit 29.4, platelet count 134. Sodium 140, potassium 4.1, chloride 95, carbon dioxide 32, anion gap 17, BUN 33, creatinine 6.69, glucose 136, calcium 9.5. ASSESSMENT AND PLAN: 1. Acute encephalopathy, most probably metabolic in origin. Brain CT scan negative for any acute intracranial findings. The patient's mental status is improving. 2. Coronary artery disease. Status post coronary artery bypass graft. Continue aspirin, Plavix and statins. 3. Essential hypertension. Continue antihypertensives. Blood pressure fairly well controlled. 4. Diabetes mellitus. Hemoglobin A1c 6.1. Continue sliding scale insulin. Blood sugars are well controlled. 5. Dyslipidemia. Continue statins. 6. End-stage renal disease on hemodialysis. Continue hemodialysis as per nephrology. 7. Fluid, electrolytes and nutrition. Await speech therapy evaluation. 8. DVT prophylaxis. Subcutaneous heparin. 9. Gastrointestinal prophylaxis. Proton pump inhibitors. PLAN: Await speech therapy evaluation. Continue current care. The case was discussed with Dr. Rico. GUANAKO RICO MD, AM/MAIRA Conf#: [id number] DID#: [id number] [facility]
[2017-01-28 19:45] VITALS: BP 147/66; RESP 18
[2017-01-28] MEDS: ROSUVASTATIN CALCIUM 40 MG TABLET PO SCH (20:20)
[2017-01-28] MEDS: HEPARIN 5,000 UNIT/0.5 ML SYG SC SCH (20:21)
[2017-01-28 22:35] VITALS: BP 139/68
[2017-01-29] VITALS (8 sets, daily range): BP systolic 70–148; BP diastolic 40–89; PULSE 50–88; RESP 19
[2017-01-29] MEDS: HYDROCODONE/APAP (5/325) TAB PO PRN ×2 (00:54→09:51)
[2017-01-29] MEDS: ACCUCHECK XX SCH (02:00)
[2017-01-29 05:24] LABS: ADD SCAN DIFF NO
[2017-01-29 05:32] LABS: BASOPHIL # 0.1 10^3/ul (0.0-0.1); BASOPHILS % 1.6 % (0.0-2.0); EOSINOPHILS # 0.3 10^3/ul (0.0-0.5); EOSINOPHILS % 4.1 % (0.0-7.0); HEMATOCRIT 32.6 % (42.0-52.0); HEMOGLOBIN 10.5 g/dl (14.0-18.0); LYMPHOCYTES % 26.5 % (15.0-51.0); MEAN CORPUSCULAR HEMOGLOBIN 36.1 pg (29.0-33.0); MEAN CORPUSCULAR HGB CONC 32.2 g/dl (32.0-37.0); MEAN PLATELET VOLUME 11.1 fl (7.4-10.4); MONOCYTES % 13.2 % (0.0-11.0); NEUTROPHIL # 4.1 10^3/ul (1.6-7.5); NEUTROPHILS % 54.5 % (39.0-77.0); PLATELET COUNT 131 10^3/UL (140-415); RED BLOOD COUNT 2.91 10^6/ul (4.70-6.10); RED CELL DISTRIBUTION WIDTH 13.3 % (11.5-14.5); WHITE BLOOD COUNT 7.5 10^3/ul (4.8-10.8)
[2017-01-29 05:45] LABS: POTASSIUM 4.3 mmol/L (3.5-5.1)
[2017-01-29 05:46] LABS: MAGNESIUM 2.5 mg/dl (1.7-2.5); PHOSPHORUS 2.7 mg/dl (2.5-4.9)
[2017-01-29 05:47] LABS: CREATININE 8.89 mg/dl (0.61-1.24)
[2017-01-29 05:48] LABS: CALCIUM 9.5 mg/dl (8.4-10.2)
[2017-01-29] MEDS: PANTOPRAZOLE 40 MG INJ IV SCH (05:49)
--- NOTE | 2017-01-29 08:23 | CONS ---
Date/Time of Note Date/Time of Note DATE: 01/29/17 TIME: 08:21 Assessment/Plan Assessment/Plan Additional Assessment/Plan 1. CKD, stable, to be dialyzed today. 2. Impaired cognition, uncertain of baseline mental status 3. Labs reviewed Consultation Date/Type/Reason Admit Date/Time Jan 26, 2017 at 10:31 Initial Consult Date Detailed Summary Respiratory: No shortness of breath Cardiovascular: No chest pain Gastrointestinal: no complaints Genitourinary: no complaints Neurologic: other (confused as to recent events) Exam/Review of Systems Vital Signs Vitals Vital Signs Date Time Temp Pulse Resp B/P Pulse Ox O2 Delivery O2 Flow Rate FiO2 01/29/17 07:37 97.2 61 19 134/70 98 01/28/17 04:00 Nasal Cannula 2.0 Intake and Output 01/28/17 01/28/17 01/29/17 15:00 23:00 07:00 Intake Total 1140 ml 1005 ml Output Total 3 ml 0 ml Balance 1137 ml 1005 ml Exam Neck: No jvd Respiratory: clear to auscultation Cardiovascular: regular rate and rhythm Gastrointestinal: soft Extremities: No edema 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: No focal weakness Results Result Diagram: 01/29/17 0415 01/29/17 0415 Results 24 hrs Laboratory Tests Test 01/28/17 11:31 01/28/17 17:27 01/28/17 20:25 01/29/17 04:15 Bedside Glucose 125 115 146 Anion Gap 18 H Basophils # 0.1 Basophils % 1.6 Blood Urea Nitrogen 54 H Calcium Level 9.5 Carbon Dioxide Level 32 H Chloride Level 95 L Creatinine 8.89 #H Eosinophils # 0.3 Eosinophils % 4.1 Glucose Level 135 Hematocrit 32.6 L Hemoglobin 10.5 L Lymphocytes # 2.0 Lymphocytes % 26.5 Magnesium Level 2.5 Mean Corpuscular Hemoglobin 36.1 H Mean Corpuscular Hemoglobin Concent 32.2 Mean Corpuscular Volume 112.0 H Mean Platelet Volume 11.1 H Monocytes # 1.0 H Monocytes % 13.2 H Neutrophils # 4.1 Neutrophils % 54.5 Nucleated Red Blood Cells # 0.0 Nucleated Red Blood Cells % 0.0 Phosphorus Level 2.7 Platelet Count 131 L Potassium Level 4.3 Red Blood Count 2.91 L Red Cell Distribution Width 13.3 Sodium Level 141 White Blood Count 7.5 # Test 01/29/17 08:08 Bedside Glucose 142 Medications Medications Current Medications Ondansetron HCl (Zofran Inj) 4 mg Q6H PRN IV NAUSEA AND/OR VOMITING; Start 01/26 at 11:00 Acetaminophen (Tylenol Tab) 650 mg Q6H PRN PO PAIN LEVEL 1-3 OR FEVER; Start at 11:00 Acetaminophen/ Hydrocodone Bitart ([place] (5/325)) 1 tab Q6H PRN PO MODERATE PAIN LEVEL 4-6 Last administered on 01/29/17 00:54; Admin Dose 1 TAB; Start 01/26 at 11:00 Morphine Sulfate (morphine) 2 mg Q4H PRN IV SEVERE PAIN LEVEL 7-10 Last administered on 01/28/17 02:00; Admin Dose 2 MG; Start 01/26/17 at 11:00 Docusate Sodium (Colace) 100 mg Q12H PRN PO CONSTIPATION; Start 01/26/17 at 11: 00 Pantoprazole (Protonix Iv) 40 mg DAILY@06 IV Last administered on 01/29/17 05: 49; Admin Dose 40 MG; Start 01/27/17 at 06:00 Hydralazine HCl (Apresoline) 10 mg Q6H PRN IV ELEVATED BLOOD PRESSURE; Start at 11:00 Nitroglycerin (Nitroglycerin (Sl Tab) 0.4 Mg) 1 tab Q5M PRN SL ANGINA; Start at 11:00 Aspirin (Halfprin) 81 mg DAILY PO Last administered on 01/28/17 08:49; Admin Dose 81 MG; Start 01/26/17 at 10:54 Clopidogrel Bisulfate (plaVIX) 75 mg DAILY PO Last administered on 01/28/17 08: 49; Admin Dose 75 MG; Start 01/26/17 at 10:54 Rosuvastatin Calcium (Crestor) 40 mg HS PO Last administered on 01/28/17 20:20 ; Admin Dose 40 MG; Start 01/26/17 at 21:00 Multivit/Ca Carb/ B Cmplx/FA/Prenat (Muna-Suraj) 1 tab DAILY PO Last administered on 01/28/17 08:49; Admin Dose 1 TAB; Start 01/26/17 at 12:00 Miscellaneous Information 1 ea NOTE XX ; Start 01/26/17 at 11:00 Glucose (Glutose) 15 gm Q15M PRN PO DECREASED GLUCOSE; Start 01/26/17 at 11:00 Glucose (Glutose) 22.5 gm Q15M PRN PO DECREASED GLUCOSE; Start 01/26/17 at 11:00 Dextrose (D50w Syringe) 25 ml Q15M PRN IV DECREASED GLUCOSE; Start 01/26/17 at 11:00 Dextrose (D50w Syringe) 50 ml Q15M PRN IV DECREASED GLUCOSE; Start 01/26/17 at 11:00 Glucagon (Glucagen) 1 mg Q15M PRN IM DECREASED GLUCOSE; Start 01/26/17 at 11:00 Glucose (Glutose) 15 gm Q15M PRN BUCCAL DECREASED GLUCOSE; Start 01/26/17 at 11: 00 Olanzapine 10 mg 10 mg DAILY PO Last administered on 01/28/17 08:49; Admin Dose 10 MG; Start 01/26/17 at 17:30 Dextrose/Sodium Chloride (D5-1/2ns) 1,000 ml @ 50 mls/hr Q20H IV Last administered on 01/28/17 13:43; Admin Dose 50 MLS/HR; Start 01/28/17 at 13:00 Diagnostic Test (Pha) (Accucheck) 1 ea 02 XX ; Start 01/29/17 at 02:00 Heparin Sodium (Porcine) (Heparin (5000 Units/0.5 ml)) 5,000 unit BID SC Last administered on 01/28/17 20:21; Admin Dose 5,000 UNIT; Start 01/28/17 at 21:00 CLIFTON CARABALLO MD Jan 29, 2017 08:23
[2017-01-29] MEDS: ASPIRIN (EC) 81 MG TAB PO SCH (09:13)
[2017-01-29] MEDS: INSULIN ASPART [NOVOLOG] 3 ML PEN SC SCH ×4 (09:13→21:00)
[2017-01-29] MEDS: MULTIVIT/CA CARB/B CMPLX/FA TAB PO SCH (09:13)
[2017-01-29] MEDS: OLANZAPINE 5 MG TAB PO SCH (09:13)
[2017-01-29] MEDS: CLOPIDOGREL 75 MG TAB PO SCH (09:13)
[2017-01-29] MEDS: HEPARIN 5,000 UNIT/0.5 ML SYG SC SCH ×2 (09:14→21:00)
[2017-01-29] MEDS: DEXTROSE 5%-0.45% NACL 1,000 ML IV SCH (09:15)
--- NOTE | 2017-01-29 10:15 | PN ---
Date/Time of Note Date/Time of Note DATE: 01/29/17 TIME: 10:14 Assessment/Plan VTE Prophylaxis VTE Prophylaxis Intervention: heparin Lines/Catheters IV [facility] Peripheral IV Urinary Cath still in place: No Assessment/Plan Chief Complaint/Hosp Course 1. Acute encephalopathy, most probably metabolic in origin. Brain CT scan negative for any acute intracranial findings. The patient's mental status is improving. 2. Coronary artery disease. Status post coronary artery bypass graft. Continue aspirin, Plavix and statins. 3. Essential hypertension. Continue antihypertensives. Blood pressure fairly well controlled. 4. Diabetes mellitus. Hemoglobin A1c 6.1. Continue sliding scale insulin. Blood sugars are well controlled. 5. Dyslipidemia. Continue statin. 6. End-stage renal disease on hemodialysis. Continue hemodialysis as per nephrology. 7. Dysphagia. Continue pureed diet. 8. Debility. Continue PT. 9. Fluid, electrolytes and nutrition. Pureed diet. 10. DVT prophylaxis. Subcutaneous heparin. 11. Gastrointestinal prophylaxis. Proton pump inhibitors. PLAN: Patient's mental status is improving. Patient currently lives in a [facility]. The patient is not an ideal candidate for DC to [facility]. Will order SNF placement. Plan of care was discussed with the patient's son. The case was discussed with Dr. Verdin. Problems: Subjective 24 Hr Interval Summary Free Text/Dictation The patient remains awake. S/P evaluation by PT. Exam/Review of Systems Vital Signs Vitals Vital Signs Date Time Temp Pulse Resp B/P Pulse Ox O2 Delivery O2 Flow Rate FiO2 01/29/17 07:37 97.2 61 19 134/70 98 01/28/17 04:00 Nasal Cannula 2.0 Intake and Output 01/28/17 01/28/17 01/29/17 14:59 22:59 06:59 Intake Total 1140 ml 1005 ml Output Total 3 ml 0 ml Balance 1137 ml 1005 ml Exam GENERAL: This is an obese male patient lying in bed in no apparent distress. HEENT: Head normocephalic and atraumatic. Eyes: Anicteric sclerae. Conjunctivae clear. ENT: Nasal septum is midline. Oral mucosa is dry. NECK: Supple. No JVD noticed. RESPIRATORY: Bilaterally clear to auscultation. No adventitious breath sounds heard. No use of accessory muscles of respiration. CARDIAC: Regular rate and rhythm. No obvious murmurs heard. A median sternotomy scar. ABDOMEN: Soft, nontender and nondistended. Bowel sounds hypoactive in all 4 quadrants. GENITOURINARY: Deferred. EXTREMITIES: No cyanosis, no clubbing, no edema. Peripheral pulses palpable. NEUROLOGIC: The patient is awake and alert. Oriented x2. Results Result Diagram: 01/29/17 0415 01/29/17 0415 Results 24 hrs Laboratory Tests Test 01/28/17 11:31 01/28/17 17:27 01/28/17 20:25 01/29/17 04:15 Bedside Glucose 125 115 146 Anion Gap 18 H Basophils # 0.1 Basophils % 1.6 Blood Urea Nitrogen 54 H Calcium Level 9.5 Carbon Dioxide Level 32 H Chloride Level 95 L Creatinine 8.89 #H Eosinophils # 0.3 Eosinophils % 4.1 Glucose Level 135 Hematocrit 32.6 L Hemoglobin 10.5 L Lymphocytes # 2.0 Lymphocytes % 26.5 Magnesium Level 2.5 Mean Corpuscular Hemoglobin 36.1 H Mean Corpuscular Hemoglobin Concent 32.2 Mean Corpuscular Volume 112.0 H Mean Platelet Volume 11.1 H Monocytes # 1.0 H Monocytes % 13.2 H Neutrophils # 4.1 Neutrophils % 54.5 Nucleated Red Blood Cells # 0.0 Nucleated Red Blood Cells % 0.0 Phosphorus Level 2.7 Platelet Count 131 L Potassium Level 4.3 Red Blood Count 2.91 L Red Cell Distribution Width 13.3 Sodium Level 141 White Blood Count 7.5 # Test 01/29/17 08:08 Bedside Glucose 142 Medications Medications Current Medications Ondansetron HCl (Zofran Inj) 4 mg Q6H PRN IV NAUSEA AND/OR VOMITING; Start 01/26 at 11:00 Acetaminophen (Tylenol Tab) 650 mg Q6H PRN PO PAIN LEVEL 1-3 OR FEVER; Start at 11:00 Acetaminophen/ Hydrocodone Bitart ([place] (5/325)) 1 tab Q6H PRN PO MODERATE PAIN LEVEL 4-6 Last administered on 01/29/17 09:51; Admin Dose 1 TAB; Start 01/26 at 11:00 Morphine Sulfate (morphine) 2 mg Q4H PRN IV SEVERE PAIN LEVEL 7-10 Last administered on 01/28/17 02:00; Admin Dose 2 MG; Start 01/26/17 at 11:00 Docusate Sodium (Colace) 100 mg Q12H PRN PO CONSTIPATION; Start 01/26/17 at 11: 00 Pantoprazole (Protonix Iv) 40 mg DAILY@06 IV Last administered on 01/29/17 05: 49; Admin Dose 40 MG; Start 01/27/17 at 06:00 Hydralazine HCl (Apresoline) 10 mg Q6H PRN IV ELEVATED BLOOD PRESSURE; Start at 11:00 Nitroglycerin (Nitroglycerin (Sl Tab) 0.4 Mg) 1 tab Q5M PRN SL ANGINA; Start at 11:00 Aspirin (Halfprin) 81 mg DAILY PO Last administered on 01/29/17 09:13; Admin Dose 81 MG; Start 01/26/17 at 10:54 Clopidogrel Bisulfate (plaVIX) 75 mg DAILY PO Last administered on 01/29/17 09: 13; Admin Dose 75 MG; Start 01/26/17 at 10:54 Rosuvastatin Calcium (Crestor) 40 mg HS PO Last administered on 01/28/17 20:20 ; Admin Dose 40 MG; Start 01/26/17 at 21:00 Multivit/Ca Carb/ B Cmplx/FA/Prenat (Muna-Suraj) 1 tab DAILY PO Last administered on 01/29/17 09:13; Admin Dose 1 TAB; Start 01/26/17 at 12:00 Miscellaneous Information 1 ea NOTE XX ; Start 01/26/17 at 11:00 Glucose (Glutose) 15 gm Q15M PRN PO DECREASED GLUCOSE; Start 01/26/17 at 11:00 Glucose (Glutose) 22.5 gm Q15M PRN PO DECREASED GLUCOSE; Start 01/26/17 at 11:00 Dextrose (D50w Syringe) 25 ml Q15M PRN IV DECREASED GLUCOSE; Start 01/26/17 at 11:00 Dextrose (D50w Syringe) 50 ml Q15M PRN IV DECREASED GLUCOSE; Start 01/26/17 at 11:00 Glucagon (Glucagen) 1 mg Q15M PRN IM DECREASED GLUCOSE; Start 01/26/17 at 11:00 Glucose (Glutose) 15 gm Q15M PRN BUCCAL DECREASED GLUCOSE; Start 01/26/17 at 11: 00 Olanzapine 10 mg 10 mg DAILY PO Last administered on 01/29/17 09:13; Admin Dose 10 MG; Start 01/26/17 at 17:30 Dextrose/Sodium Chloride (D5-1/2ns) 1,000 ml @ 50 mls/hr Q20H IV Last administered on 01/29/17 09:15; Admin Dose 50 MLS/HR; Start 01/28/17 at 13:00 Diagnostic Test (Pha) (Accucheck) 1 ea 02 XX ; Start 01/29/17 at 02:00 Heparin Sodium (Porcine) (Heparin (5000 Units/0.5 ml)) 5,000 unit BID SC Last administered on 01/29/17 09:14; Admin Dose 5,000 UNIT; Start 01/28/17 at 21:00 GUANAKO BORDEN NP Jan 29, 2017 10:15
[2017-01-29 10:23] LABS: BARBITURATES NEGATIVE (NEGATIVE); BENZODIAZEPINES NEGATIVE (NEGATIVE); CANNABINOIDS NEGATIVE (NEGATIVE); COCAINE NEGATIVE (NEGATIVE); OPIATES NEGATIVE (NEGATIVE)
[2017-01-29] MEDS: ROSUVASTATIN CALCIUM 40 MG TABLET PO SCH (21:18)
[2017-01-30] MEDS: morphine 2 MG INJ IV PRN (01:21)
[2017-01-30] MEDS: ACCUCHECK XX SCH (01:37)
[2017-01-30] MEDS: PANTOPRAZOLE 40 MG INJ IV SCH (05:23)
[2017-01-30] MEDS: DEXTROSE 5%-0.45% NACL 1,000 ML IV SCH (05:24)
[2017-01-30 05:58] LABS: ADD SCAN DIFF NO
[2017-01-30 06:06] LABS: BASOPHIL # 0.1 10^3/ul (0.0-0.1); BASOPHILS % 1.3 % (0.0-2.0); EOSINOPHILS # 0.3 10^3/ul (0.0-0.5); EOSINOPHILS % 4.1 % (0.0-7.0); HEMATOCRIT 31.2 % (42.0-52.0); HEMOGLOBIN 10.3 g/dl (14.0-18.0); LYMPHOCYTES # 1.9 10^3/ul (0.8-2.9); LYMPHOCYTES % 25.4 % (15.0-51.0); MEAN CORPUSCULAR HEMOGLOBIN 35.6 pg (29.0-33.0); MEAN PLATELET VOLUME 10.8 fl (7.4-10.4); MONOCYTE # 0.9 10^3/ul (0.3-0.9); MONOCYTES % 11.4 % (0.0-11.0); NEUTROPHIL # 4.3 10^3/ul (1.6-7.5); NEUTROPHILS % 57.7 % (39.0-77.0); PLATELET COUNT 173 10^3/UL (140-415); RED BLOOD COUNT 2.89 10^6/ul (4.70-6.10); RED CELL DISTRIBUTION WIDTH 12.9 % (11.5-14.5); WHITE BLOOD COUNT 7.5 10^3/ul (4.8-10.8)
[2017-01-30 06:17] LABS: MAGNESIUM 2.3 mg/dl (1.7-2.5); PHOSPHORUS 2.7 mg/dl (2.5-4.9)
[2017-01-30 06:21] LABS: POTASSIUM 4.1 mmol/L (3.5-5.1)
[2017-01-30 06:24] LABS: CALCIUM 9.2 mg/dl (8.4-10.2); CREATININE 7.68 mg/dl (0.61-1.24)
[2017-01-30] MEDS: INSULIN ASPART [NOVOLOG] 3 ML PEN SC SCH ×4 (08:00→20:35)
--- NOTE | 2017-01-30 08:04 | CONS ---
Date/Time of Note Date/Time of Note DATE: 01/30/17 TIME: 08:02 Assessment/Plan Assessment/Plan Additional Assessment/Plan 1. CKD, with next HD tomm if not discharged 2. Left upper extrem swell, will pursue with NIVVS 3. Cognition improved 4. Await dc planning eval re DC Consultation Date/Type/Reason Admit Date/Time Jan 26, 2017 at 10:31 Detailed Summary Respiratory: No cough, No shortness of breath Cardiovascular: No chest pain Gastrointestinal: no complaints Genitourinary: no complaints Neurologic: No focal-weakness, No headache Exam/Review of Systems Vital Signs Vitals Vital Signs Date Time Temp Pulse Resp B/P Pulse Ox O2 Delivery O2 Flow Rate FiO2 01/29/17 20:15 66 01/29/17 20:15 20 01/29/17 07:37 97.2 134/70 98 01/28/17 04:00 Nasal Cannula 2.0 Intake and Output 01/29/17 01/29/17 01/30/17 15:00 23:00 07:00 Intake Total 235 ml 2700 ml 960 ml Output Total 2450 ml 200 ml Balance 235 ml 250 ml 760 ml Exam Neck: No jvd Respiratory: clear to auscultation Cardiovascular: regular rate and rhythm Gastrointestinal: soft Extremities: No edema (lower extrem, left upper extrem marked swelling) Results Result Diagram: 01/30/17 0415 01/30/17 0415 Results 24 hrs Laboratory Tests Test 01/29/17 08:08 01/29/17 11:58 01/29/17 17:48 01/29/17 21:30 Bedside Glucose 142 165 164 97 Test 01/30/17 04:15 Anion Gap 19 H Basophils # 0.1 Basophils % 1.3 Blood Urea Nitrogen 45 H Calcium Level 9.2 Carbon Dioxide Level 30 Chloride Level 94 L Creatinine 7.68 H Eosinophils # 0.3 Eosinophils % 4.1 Glucose Level 147 Hematocrit 31.2 L Hemoglobin 10.3 L Lymphocytes # 1.9 Lymphocytes % 25.4 Magnesium Level 2.3 Mean Corpuscular Hemoglobin 35.6 H Mean Corpuscular Hemoglobin Concent 33.0 Mean Corpuscular Volume 108.0 H Mean Platelet Volume 10.8 H Monocytes # 0.9 Monocytes % 11.4 H Neutrophils # 4.3 Neutrophils % 57.7 Nucleated Red Blood Cells # 0.0 Nucleated Red Blood Cells % 0.0 Phosphorus Level 2.7 Platelet Count 173 # Potassium Level 4.1 Red Blood Count 2.89 L Red Cell Distribution Width 12.9 Sodium Level 139 White Blood Count 7.5 Medications Medications Current Medications Ondansetron HCl (Zofran Inj) 4 mg Q6H PRN IV NAUSEA AND/OR VOMITING; Start 01/26 at 11:00 Acetaminophen (Tylenol Tab) 650 mg Q6H PRN PO PAIN LEVEL 1-3 OR FEVER; Start at 11:00 Acetaminophen/ Hydrocodone Bitart ([place] (5/325)) 1 tab Q6H PRN PO MODERATE PAIN LEVEL 4-6 Last administered on 01/29/17 09:51; Admin Dose 1 TAB; Start 01/26 at 11:00 Morphine Sulfate (morphine) 2 mg Q4H PRN IV SEVERE PAIN LEVEL 7-10 Last administered on 01/30/17 01:21; Admin Dose 2 MG; Start 01/26/17 at 11:00 Docusate Sodium (Colace) 100 mg Q12H PRN PO CONSTIPATION; Start 01/26/17 at 11: 00 Pantoprazole (Protonix Iv) 40 mg DAILY@06 IV Last administered on 01/30/17 05: 23; Admin Dose 40 MG; Start 01/27/17 at 06:00 Hydralazine HCl (Apresoline) 10 mg Q6H PRN IV ELEVATED BLOOD PRESSURE; Start at 11:00 Nitroglycerin (Nitroglycerin (Sl Tab) 0.4 Mg) 1 tab Q5M PRN SL ANGINA; Start at 11:00 Aspirin (Halfprin) 81 mg DAILY PO Last administered on 01/29/17 09:13; Admin Dose 81 MG; Start 01/26/17 at 10:54 Clopidogrel Bisulfate (plaVIX) 75 mg DAILY PO Last administered on 01/29/17 09: 13; Admin Dose 75 MG; Start 01/26/17 at 10:54 Rosuvastatin Calcium (Crestor) 40 mg HS PO Last administered on 01/29/17 21:18 ; Admin Dose 40 MG; Start 01/26/17 at 21:00 Multivit/Ca Carb/ B Cmplx/FA/Prenat (Muna-Suraj) 1 tab DAILY PO Last administered on 01/29/17 09:13; Admin Dose 1 TAB; Start 01/26/17 at 12:00 Miscellaneous Information 1 ea NOTE XX ; Start 01/26/17 at 11:00 Glucose (Glutose) 15 gm Q15M PRN PO DECREASED GLUCOSE; Start 01/26/17 at 11:00 Glucose (Glutose) 22.5 gm Q15M PRN PO DECREASED GLUCOSE; Start 01/26/17 at 11:00 Dextrose (D50w Syringe) 25 ml Q15M PRN IV DECREASED GLUCOSE; Start 01/26/17 at 11:00 Dextrose (D50w Syringe) 50 ml Q15M PRN IV DECREASED GLUCOSE; Start 01/26/17 at 11:00 Glucagon (Glucagen) 1 mg Q15M PRN IM DECREASED GLUCOSE; Start 01/26/17 at 11:00 Glucose (Glutose) 15 gm Q15M PRN BUCCAL DECREASED GLUCOSE; Start 01/26/17 at 11: 00 Olanzapine 10 mg 10 mg DAILY PO Last administered on 01/29/17 09:13; Admin Dose 10 MG; Start 01/26/17 at 17:30 Dextrose/Sodium Chloride (D5-1/2ns) 1,000 ml @ 50 mls/hr Q20H IV Last administered on 01/30/17 05:24; Admin Dose 50 MLS/HR; Start 01/28/17 at 13:00 Diagnostic Test (Pha) (Accucheck) 1 ea 02 XX ; Start 01/29/17 at 02:00 Heparin Sodium (Porcine) (Heparin (5000 Units/0.5 ml)) 5,000 unit BID SC Last administered on 01/29/17 09:14; Admin Dose 5,000 UNIT; Start 01/28/17 at 21:00 CLIFTON CARABALLO MD Jan 30, 2017 08:04
[2017-01-30] MEDS: HEPARIN 5,000 UNIT/0.5 ML SYG SC SCH ×2 (09:00→20:38)
[2017-01-30] MEDS: CLOPIDOGREL 75 MG TAB PO SCH (09:00)
[2017-01-30] MEDS: MULTIVIT/CA CARB/B CMPLX/FA TAB PO SCH (09:00)
[2017-01-30] MEDS: OLANZAPINE 5 MG TAB PO SCH (09:00)
[2017-01-30] MEDS: ASPIRIN (EC) 81 MG TAB PO SCH (09:00)
--- NOTE | 2017-01-30 09:13 | RADRPT ---
PROCEDURE: US upper extremity Venous. CLINICAL INDICATION: Left arm swelling TECHNIQUE: Multiple sonographic images of the left upper extremity venous system was obtained util izing grayscale, color-flow, compressive sonography and doppler imaging with augmentation. The imag es were reviewed on a PACS workstation. COMPARISON: 12/12/2016 FINDINGS: There is normal compressibility and flow within the left internal jugular vein, subclavian vein, axi llary vein, brachial, basilic, cephalic, radial and ulnar veins. There is a fistula in the left bas ilic vein, which is patent. RPTAT: AA IMPRESSION: No sonographic evidence for venous thrombosis. .Javad Falk MD, MD Date Time Electronically viewed and signed by .Javad Falk MD, on 01/30/2017 09:13 .S/
--- NOTE | 2017-01-30 11:58 | CONS ---
DATE OF ADMISSION: 01/26/2017 DATE OF CONSULTATION: 01/30/2017 VASCULAR SURGERY CONSULTATION Dear Doctors: Mr. Lam is a 61-year-old gentleman known to our vascular surgery service with a history of end-sta ge renal disease who had underwent a left upper extremity brachiobasilic fistula creation and transp osition. The patient was recently admitted to [facility] and vascular surgery con sultation was obtained for evaluation of his left upper extremity. The patient as of recently was s een in our office on 01/07/2017, was evaluated with an ultrasound in which he does have some neointi mal hyperplasia at the anastomosis site. Further, he has developed new left upper extremity swellin g which he did have in the past; however, it resolved and now he has recurrence of it. This likely was related to the fact that the patient had a previous brachiocephalic fistula and had cephalic arc h stenosis in which there was a stent graft placed that has now developed stenosis at the junction w ith the axillary vein causing an occlusion in that area. 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 These findings were discussed with the son and the patient a t our last office visit and the plan was to continue observation and monitoring for now and revaluat e in a couple weeks. At the moment, the patient's altered level of consciousness is improving, as he had some underlying dementia and having an overdose possibly with benzodiazepines. Medical team is evaluating him for t hat. REVIEW OF SYSTEMS: A 12-point review performed and negative except what is mentioned in the HPI. PAST MEDICAL HISTORY: End-stage renal disease on dialysis, coronary artery disease, diabetes, demen tia, hyperlipidemia, hypercholesterolemia, hypertension, previous smoker and alcohol drinker. PAST SURGICAL HISTORY: Coronary bypass surgery, multiple left upper extremity fistula creations, mu ltiple chest wall catheters, pacemaker. SOCIAL HISTORY: Previous smoker and alcohol drinker. Denies current alcohol, tobacco or illicit dr ug use. FAMILY HISTORY: Coronary artery disease and hypertension. PHYSICAL EXAMINATION: GENERAL: Alert and oriented x3, no apparent distress. PULMONARY: Clear to auscultation bilaterally. No crackles. CARDIOVASCULAR: S1, S2 present. No murmurs. HEENT: Normocephalic, atraumatic. PERRLA, EOMI. Mucosa moist. Poor dentition. NECK: Supple. No carotid bruit. ABDOMEN: Soft, nontender, nondistended. Bowel sounds positive. Truncal obesity. EXTREMITIES: Left upper extremity palpable brachial pulse. Motor, sensory intact. Capillary refil l 2 to 3 seconds. Edema 2+. Surgical scars are well healed. There is a brachiobasilic fistula wit h bruit and thrill present. ASSESSMENT AND PLAN: End-stage renal disease: It seems the patient's left upper extremity fistula is functional without any recent issues during his dialysis sessions. The patient has developed this new left upper extre mity swelling in which we have seen him in the office for and likely related to the fact that he has a stenosis the region of the cephalic arch and axillary vein. 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 At the moment, no further vascular intervention is needed and we will continue to monitor him . However, if the swelling continues to be bothersome to the patient and causing significant issues with dialysis, we will plan to give further vascular interventions, possible stenting of that segme nt or bypass. Optimize vascular status (BP meds, diet, nutrition, exercise, sugar control, antiplatelets). Thank you for allowing us to partake in the care of your patient. Please call with any questions. Discussed findings, plan and management with the patient and he understands. Dictated By: ASHLEY CURTIS/MAIRA Conf#: [id number] DID#: [id number]
--- NOTE | 2017-01-30 14:47 | PN ---
Date/Time of Note Date/Time of Note DATE: 01/30/17 TIME: 14:41 Assessment/Plan VTE Prophylaxis VTE Prophylaxis Intervention: heparin Lines/Catheters IV Catheter Type (from Nrs): Peripheral IV Urinary Cath still in place: No Assessment/Plan Assessment/Plan 1. Altered level of consciousness. dementia related, stable 2. CAD status post CABG. Continue antiplatelet therapy. 3. Diabetes mellitus.. Continue insulin regimen. 4. Hypertension. stable 5. Dyslipidemia, on statin 6. End-stage renal disease. on HD 7. LUE edema, follow up with vascular 8. Awaiting for placement 9. DVT prophylaxis: heparin Subjective 24 Hr Interval Summary Free Text/Dictation full alert but demented. no distress Exam/Review of Systems Vital Signs Vitals Vital Signs Date Time Temp Pulse Resp B/P Pulse Ox O2 Delivery O2 Flow Rate FiO2 01/29/17 20:15 66 01/29/17 20:15 20 01/29/17 07:37 97.2 134/70 98 01/28/17 04:00 Nasal Cannula 2.0 Intake and Output 01/29/17 01/29/17 01/30/17 15:00 23:00 07:00 Intake Total 235 ml 2700 ml 960 ml Output Total 2450 ml 200 ml Balance 235 ml 250 ml 760 ml Exam Constitutional: alert, well developed Head: atraumatic, normocephalic Eyes: EOMI, PERRL, nl conjunctiva, nl lids ENMT: nl external ears & nose, nl lips & teeth, nl nasal mucosa & septum Neck: non-tender, supple Respiratory: clear to auscultation, normal air movement, No congested cough, No crackles/rales, No diminished breath sounds, No intercostal retraction, No labored breathing, No other, No respirations, No tactile fremitus, No wheezing Cardiovascular: nl pulses, regular rate and rhythm, No S3, No S4, No bruits, No diastolic murmur, No edema, No gallop, No irregular rhythm, No jugular venous distention (JVD), No murmurs/extra sounds, No other, No rub, No systolic murmur Gastrointestinal: nl liver, spleen, non-tender, soft, No ascites, No bowel sounds, No distended, No firm, No hepatomegaly, No mass , No other, No rebound or guarding, No splenomegaly, No surgical scars, No tender Musculoskeletal: nl extremities to inspection Extremities: edema (LUE), normal pulses, No calf tenderness, No clubbing, No cyanosis, No other, No palpable cord, No pitting pedal edema, No tenderness 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: 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, nl speech, nl strength Skin: nl turgor Lymph: nl lymph nodes Results Result Diagram: 01/30/17 0415 01/30/17 0415 Results 24 hrs Laboratory Tests Test 01/29/17 17:48 01/29/17 21:30 01/30/17 04:15 Bedside Glucose 164 97 Anion Gap 19 H Basophils # 0.1 Basophils % 1.3 Blood Urea Nitrogen 45 H Calcium Level 9.2 Carbon Dioxide Level 30 Chloride Level 94 L Creatinine 7.68 H Eosinophils # 0.3 Eosinophils % 4.1 Glucose Level 147 Hematocrit 31.2 L Hemoglobin 10.3 L Lymphocytes # 1.9 Lymphocytes % 25.4 Magnesium Level 2.3 Mean Corpuscular Hemoglobin 35.6 H Mean Corpuscular Hemoglobin Concent 33.0 Mean Corpuscular Volume 108.0 H Mean Platelet Volume 10.8 H Monocytes # 0.9 Monocytes % 11.4 H Neutrophils # 4.3 Neutrophils % 57.7 Nucleated Red Blood Cells # 0.0 Nucleated Red Blood Cells % 0.0 Phosphorus Level 2.7 Platelet Count 173 # Potassium Level 4.1 Red Blood Count 2.89 L Red Cell Distribution Width 12.9 Sodium Level 139 White Blood Count 7.5 Medications Medications Current Medications Ondansetron HCl (Zofran Inj) 4 mg Q6H PRN IV NAUSEA AND/OR VOMITING; Start 01/26 at 11:00 Acetaminophen (Tylenol Tab) 650 mg Q6H PRN PO PAIN LEVEL 1-3 OR FEVER; Start at 11:00 Acetaminophen/ Hydrocodone Bitart ([place] (5/325)) 1 tab Q6H PRN PO MODERATE PAIN LEVEL 4-6 Last administered on 01/29/17 09:51; Admin Dose 1 TAB; Start 01/26 at 11:00 Morphine Sulfate (morphine) 2 mg Q4H PRN IV SEVERE PAIN LEVEL 7-10 Last administered on 01/30/17 01:21; Admin Dose 2 MG; Start 01/26/17 at 11:00 Docusate Sodium (Colace) 100 mg Q12H PRN PO CONSTIPATION; Start 01/26/17 at 11: 00 Pantoprazole (Protonix Iv) 40 mg DAILY@06 IV Last administered on 01/30/17 05: 23; Admin Dose 40 MG; Start 01/27/17 at 06:00 Hydralazine HCl (Apresoline) 10 mg Q6H PRN IV ELEVATED BLOOD PRESSURE; Start at 11:00 Nitroglycerin (Nitroglycerin (Sl Tab) 0.4 Mg) 1 tab Q5M PRN SL ANGINA; Start at 11:00 Aspirin (Halfprin) 81 mg DAILY PO Last administered on 01/29/17 09:13; Admin Dose 81 MG; Start 01/26/17 at 10:54 Clopidogrel Bisulfate (plaVIX) 75 mg DAILY PO Last administered on 01/29/17 09: 13; Admin Dose 75 MG; Start 01/26/17 at 10:54 Rosuvastatin Calcium (Crestor) 40 mg HS PO Last administered on 01/29/17 21:18 ; Admin Dose 40 MG; Start 01/26/17 at 21:00 Multivit/Ca Carb/ B Cmplx/FA/Prenat (Muna-Suraj) 1 tab DAILY PO Last administered on 01/29/17 09:13; Admin Dose 1 TAB; Start 01/26/17 at 12:00 Miscellaneous Information 1 ea NOTE XX ; Start 01/26/17 at 11:00 Glucose (Glutose) 15 gm Q15M PRN PO DECREASED GLUCOSE; Start 01/26/17 at 11:00 Glucose (Glutose) 22.5 gm Q15M PRN PO DECREASED GLUCOSE; Start 01/26/17 at 11:00 Dextrose (D50w Syringe) 25 ml Q15M PRN IV DECREASED GLUCOSE; Start 01/26/17 at 11:00 Dextrose (D50w Syringe) 50 ml Q15M PRN IV DECREASED GLUCOSE; Start 01/26/17 at 11:00 Glucagon (Glucagen) 1 mg Q15M PRN IM DECREASED GLUCOSE; Start 01/26/17 at 11:00 Glucose (Glutose) 15 gm Q15M PRN BUCCAL DECREASED GLUCOSE; Start 01/26/17 at 11: 00 Olanzapine 10 mg 10 mg DAILY PO Last administered on 01/29/17 09:13; Admin Dose 10 MG; Start 01/26/17 at 17:30 Dextrose/Sodium Chloride (D5-1/2ns) 1,000 ml @ 50 mls/hr Q20H IV Last administered on 01/30/17 05:24; Admin Dose 50 MLS/HR; Start 01/28/17 at 13:00 Diagnostic Test (Pha) (Accucheck) 1 ea 02 XX ; Start 01/29/17 at 02:00 Heparin Sodium (Porcine) (Heparin (5000 Units/0.5 ml)) 5,000 unit BID SC Last administered on 01/29/17 09:14; Admin Dose 5,000 UNIT; Start 01/28/17 at 21:00 MYRA DAWKINS MD Jan 30, 2017 14:47
--- NOTE | 2017-01-30 16:24 | DS ---
Date/Time of Note Date/Time of Note DATE: 01/30/17 TIME: 16:20 Discharge Summary Admission/Discharge Info Admit Date/Time Jan 26, 2017 at 10:31 Discharge Date/Time Final Diagnosis 1. Altered level of consciousness. dementia related, stable 2. CAD status post CABG. Continue antiplatelet therapy. 3. Diabetes mellitus.. Continue insulin regimen. 4. Hypertension. stable 5. Dyslipidemia, on statin 6. End-stage renal disease. on HD 7. LUE edema, follow up with vascular Patient Condition: Stable Hx of Present Illness This is a 61-year-old male with history of end-stage renal disease, on dialysis , coronary artery disease status post CABG, dementia, psych disorder, who came from assisted facility secondary to altered level of consciousness. Patient does have history of agitation and from report patient was agitated and nurses at the assisted facility went forward with providing the patient with giving benzodiazepine. Patient at that moment became more altered and was brought in by [facility]. Of note for history not fully obtained as patient is not alert or oriented. He only speaks patient is able to make full sentences but is incoherent. On further examination patient did have CT scan of the brain that was negative for any acute intracranial hemorrhage or infarction or mass-effect. There was a moderate intracranial atherosclerosis and chronic small vessel ischemic changes. There is also seen mild to moderate generalized cerebral volume loss. Patient was seen with some leukocytosis however likely reactive. Patient remains afebrile. Noted with some hypertension likely secondary to his agitation. On presentation patient appeared much calmer. He was reported to be abusive to the nurses. We will evaluate him for the aforementioned issues Hospital Course For mental status change, there is no acute illness was found. CT head no acute changes. It is considered dementia and uremia related. It has improved with HD. Patient has left upper extremity edema. Negative for DVT on ultrasound. No specific treatment at this time but he will follow up with vascular surgery if worse clinically. Home Meds Active Scripts Polyethylene Glycol* (Miralax*) 17 Gm Powd.pack, 17 GM PO DAILY, #7 Prov:ZAIRA JACOBSON MD 11/15/15 Docusate Sodium* (Colace*) 100 Mg Capsule, 100 MG PO TID, #30 CAP Prov:ZAIRA JACOBSON MD 11/15/15 Nitroglycerin* (Nitrostat*) 25 Tab Subl, 0.4 MG SL Q5M Y for ANGINA, #30 Prov:TAPAN MCCLELLAND 05/21/15 Isosorbide Mononitrate* (Isosorbide Mononitrate*) 60 Mg Tabsr, 60 MG PO DAILY for 30 Days Prov:TAPAN MCCLELLAND 05/21/15 Atorvastatin Calcium* (Atorvastatin Calcium*) 20 Mg Tab, 20 MG PO HS for 30 Days Prov:TAPAN MCCLELLAND 05/03/15 Aspirin* (Aspirin* EC) 81 Mg Tabec, 81 MG PO DAILY for 30 Days Prov:TAPAN MCCLELLAND 05/03/15 Reported Medications Lisinopril* (Lisinopril*) 40 Mg Tablet, 40 MG PO DAILY, TAB 08/02/15 Metoprolol Succinate* (Toprol XL*) 25 Mg Tab.sr.24h, 25 MG PO DAILY, TAB 06/09/15 Insulin Aspart* (Novolog Insulin Pen*) 100 Unit/Ml Soln, 3 UNIT SC WITH MEALS, EA 06/09/15 Amlodipine Besylate* (Norvasc*) 5 Mg Tablet, 5 MG PO BID, TAB 05/24/15 Sevelamer Hcl* (Renagel*) 800 Mg Tablet, 800 MG PO WITH MEALS, TAB 05/19/15 Vit B Complex & C No.13/Fa/D3 (NEPHROCAPS QT TABLET) 1 Each Tab.rapdis, 1 EACH PO DAILY 05/19/15 Levothyroxine Sodium* (Levothyroxine Sodium*) 200 Mcg Tablet, 200 MCG PO AC BREAKFAST, TAB 05/19/15 Insulin Glargine* (Lantus*) 100 Unit/Ml Soln, 10 UNIT SC QAM, EA 05/19/15 Ergocalciferol* (Drisdol* (Vitamin D2)) 50,000 Unit Capsule, 24585 UNIT PO Q14D , CAP 05/19/15 Rosuvastatin Calcium* (Crestor*) 40 Mg Tablet, 40 MG PO HS, TAB 05/19/15 Clopidogrel Bisulfate* (Clopidogrel Bisulfate*) 75 Mg Tablet, 75 MG PO DAILY, TAB 05/19/15 Calcium Acetate* (Calcium Acetate*) 667 Mg Capsule, 667 MG PO WITH MEALS, CAP 05/19/15 Follow-up Plan PCP follow up in one week follow up with nephrology for HD Pending Labs Laboratory Tests Test 01/29/17 17:48 01/29/17 21:30 01/30/17 04:15 Bedside Glucose 164mg/dL (70-220) 97mg/dL (70-220) Anion Gap 19 (8-16) Basophils # 0.110^3/ul (0.0-0.1) Basophils % 1.3% (0.0-2.0) Blood Urea Nitrogen 45mg/dl (7-20) Calcium Level 9.2mg/dl (8.4-10.2) Carbon Dioxide Level 30mmol/L (21-31) Chloride Level 94mmol/L (97-110) Creatinine 7.68mg/dl (0.61-1.24) Eosinophils # 0.310^3/ul (0.0-0.5) Eosinophils % 4.1% (0.0-7.0) Glucose Level 147mg/dl (70-220) Hematocrit 31.2% (42.0-52.0) Hemoglobin 10.3g/dl (14.0-18.0) Lymphocytes # 1.910^3/ul (0.8-2.9) Lymphocytes % 25.4% (15.0-51.0) Magnesium Level 2.3mg/dl (1.7-2.5) Mean Corpuscular Hemoglobin 35.6pg (29.0-33.0) Mean Corpuscular Hemoglobin Concent 33.0g/dl (32.0-37.0) Mean Corpuscular Volume 108.0fl (82.0-101.0) Mean Platelet Volume 10.8fl (7.4-10.4) Monocytes # 0.910^3/ul (0.3-0.9) Monocytes % 11.4% (0.0-11.0) Neutrophils # 4.310^3/ul (1.6-7.5) Neutrophils % 57.7% (39.0-77.0) Nucleated Red Blood Cells # 0.010^3/ul (0.0-0.0) Nucleated Red Blood Cells % 0.0/100WBC (0.0-0.0) Phosphorus Level 2.7mg/dl (2.5-4.9) Platelet Count 89836^3/UL (140-415) Potassium Level 4.1mmol/L (3.5-5.1) Red Blood Count 2.8910^6/ul (4.70-6.10) Red Cell Distribution Width 12.9% (11.5-14.5) Sodium Level 139mmol/L (135-144) White Blood Count 7.510^3/ul (4.8-10.8) MYRA DAWKINS MD Jan 30, 2017 16:24
[2017-01-30 19:50] VITALS: BP 167/77; RESP 16
[2017-01-30 20:30] VITALS: BP 145/74
[2017-01-30] MEDS: ROSUVASTATIN CALCIUM 40 MG TABLET PO SCH (20:38)
== END 2017-01-30 21:05 | disposition home health service (06) | DRG 917 ==
LOC: E/R 06:46 → PP2 10:31
PROVIDERS: ADMIT Internal Medicine; ATTEND Internal Medicine
PROC: 5A1D00Z (ICD-10-PCS; principal; 2017-01-29)
DX: T42.4X1A Poisoning by benzodiazepines, accidental (unintentional), initial encounter (principal); N18.6 End stage renal disease; G92 Toxic encephalopathy; I12.0 Hypertensive chronic kidney disease with stage 5 chronic kidney disease or end stage renal disease; G30.0 Alzheimer's disease with early onset; F02.81 Dementia in other diseases classified elsewhere, unspecified severity, with behavioral disturbance; E78.5 Hyperlipidemia, unspecified; Z99.2 Dependence on renal dialysis; I25.10 Atherosclerotic heart disease of native coronary artery without angina pectoris; Z95.1 Presence of aortocoronary bypass graft; E11.9 Type 2 diabetes mellitus without complications; Z79.4 Long term (current) use of insulin; Y92.049 Unspecified place in boarding-house as the place of occurrence of the external cause; R60.9 Edema, unspecified
CPT/HCPCS: 36415; 70450; 71010; 80048; 80053; 80061; 80307; 81001; 81003; 82962; 83036; 83690; 83735; 84100; 84439; 84443; 84484; 85025; 87040; 87081; 87086; 90935; 92610; 93005; 93971; 97162; A4310; C9113; J1815; J2270; J7042

== ENCOUNTER 2017-10-05 23:15 | Inpatient (IN) | payer MEDICARE, OTHER ==
[~2017-10-05] VITALS: Ht 165.1 cm; Wt 89.8 kg
[~2017-10-05 23:15] MED LIST changes: +METO-335 PO; -METO25TA7 PO
[2017-10-06] MEDS ORDERED: HYDROCODONE/APAP (5/325) TAB PO ONE
[2017-10-06] MEDS ORDERED: morphine 4 MG/ML VIAL IV STA (01:00)
[2017-10-06 01:30] LABS: BASOPHIL # 0.1 10^3/ul (0.0-0.1); BASOPHILS % 1.6 % (0.0-2.0); EOSINOPHILS # 0.1 10^3/ul (0.0-0.5); EOSINOPHILS % 1.8 % (0.0-7.0); HEMATOCRIT 32.4 % (42.0-52.0); HEMOGLOBIN 10.4 g/dl (14.0-18.0); LYMPHOCYTES # 1.6 10^3/ul (0.8-2.9); MEAN CORPUSCULAR HGB CONC 32.1 g/dl (32.0-37.0); MEAN CORPUSCULAR VOLUME 109.1 fl (82.0-101.0); MEAN PLATELET VOLUME 10.8 fl (7.4-10.4); MONOCYTE # 0.8 10^3/ul (0.3-0.9); NEUTROPHIL # 3.5 10^3/ul (1.6-7.5); NEUTROPHILS % 57.4 % (39.0-77.0); PLATELET COUNT 138 10^3/UL (140-415); RED BLOOD COUNT 2.97 10^6/ul (4.70-6.10); RED CELL DISTRIBUTION WIDTH 14.2 % (11.5-14.5); WHITE BLOOD COUNT 6.1 10^3/ul (4.8-10.8)
[2017-10-06 01:47] LABS: CALCIUM 9.4 mg/dl (8.4-10.2); CREATININE 4.29 mg/dl (0.61-1.24); POTASSIUM 4.4 mmol/L (3.5-5.1)
[2017-10-06] MEDS ORDERED: PIPER-TAZO 3.375 GM IV (PMX) 50 ML IVPB STA (04:27)
[2017-10-06] MEDS ORDERED: VANCOMYCIN 1 GM (PMX) 250 ML IVPB ONE (04:30)
--- NOTE | 2017-10-06 04:58 | ERD ---
ER Documentation Chief Complaint Chief Complaint Left arm swelling gradual HPI 61-year-old male presents with left arm swelling that developed over couple of weeks. Also become red and hot. He receives dialysis from that arm with an upper extremity fistula. He has not had fevers. He has had no other symptoms. He had dialysis today through his fistula with no complications. ROS All systems reviewed and are negative except as per history of present illness. Allergies Allergies: Coded Allergies: No Known Allergy (Unverified , 10/06/17) PMhx/Soc History of Surgery: No Anesthesia Reaction: No Hx 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 Disorder: No Hx Respiratory Disorders: No Hx Cardiac Disorders: Yes (HTN) Hx Psychiatric Problems: No Hx Miscellaneous Medical Probl: Yes (DM, ESRD) Hx Alcohol Use: No Hx Substance Use: No Hx Tobacco Use: No Smoking Status: Never smoker Physical Exam Vitals Vital Signs Date Time Temp Pulse Resp B/P Pulse Ox O2 Delivery O2 Flow Rate FiO2 10/06/17 01:35 72 20 109/72 99 Room Air 10/05/17 23:30 98.5 50 20 141/74 99 Physical Exam Const: [] Mild distress, has pain to upper arm Head: Atraumatic Eyes: Normal Conjunctiva ENT: Normal External Ears, Nose and Mouth. Neck: Full range of motion..~ No meningismus. Resp: Clear to auscultation bilaterally Cardio: Regular tachycardia, no murmurs Abd: Soft, non tender, non distended. Normal bowel sounds Skin: No petechiae or rashes Ext: Left arm with swelling all the way from the hand up to the upper bicep and shoulder area, there is also positive calor, the patient has tenderness in most of the skin. He has a good thrill of his upper extremity dialysis access. Neur: Awake and alert 3, no focal deficits Psych: Normal Mood and Affect Result Diagram: 10/06/17 0005 10/06/17 0005 Results 24 hrs Laboratory Tests Test 10/06/17 00:05 White Blood Count 6.110^3/ul Red Blood Count 2.9710^6/ul Hemoglobin 10.4g/dl Hematocrit 32.4% Mean Corpuscular Volume 109.1fl Mean Corpuscular Hemoglobin 35.0pg Mean Corpuscular Hemoglobin Concent 32.1g/dl Red Cell Distribution Width 14.2% Platelet Count 67498^3/UL Mean Platelet Volume 10.8fl Neutrophils % 57.4% Lymphocytes % 26.0% Monocytes % 13.0% Eosinophils % 1.8% Basophils % 1.6% Nucleated Red Blood Cells % 0.0/100WBC Neutrophils # 3.510^3/ul Lymphocytes # 1.610^3/ul Monocytes # 0.810^3/ul Eosinophils # 0.110^3/ul Basophils # 0.110^3/ul Nucleated Red Blood Cells # 0.010^3/ul Sodium Level 142mmol/L Potassium Level 4.4mmol/L Chloride Level 98mmol/L Carbon Dioxide Level 34mmol/L Anion Gap 14 Blood Urea Nitrogen 20mg/dl Creatinine 4.29mg/dl Glucose Level 206mg/dl Calcium Level 9.4mg/dl Current Medications Medications (Trade) Dose Ordered Sig/Radha Route PRN Reason Start Time Stop Time Status Last Admin Dose Admin Acetaminophen/ Hydrocodone Bitart ([place] (5/325)) 1 tab ONCE ONCE PO 10/06/17 00:00 10/06/17 00:01 DC Morphine Sulfate 4 mg 4 mg ONCE STAT IV 10/06/17 01:00 10/06/17 01:01 DC 10/06/17 01:18 Vancomycin HCl 250 ml @ 125 mls/hr ONCE ONCE IVPB 10/06/17 04:30 10/06/17 06:29 Piperacillin Sod/ Tazobactam Sod (Zosyn 3.375gm/ 50 ml (Pmx)) 50 ml @ 100 mls/hr ONCE STAT IVPB 10/06/17 04:27 10/06/17 04:56 Ondansetron HCl (Zofran Inj) 4 mg BRIDGE ORDER PRN IV NAUSEA AND/OR VOMITING 10/06/17 05:00 10/07/17 04:59 Acetaminophen (Tylenol Tab) 650 mg ER BRIDGE PRN PO MILD PAIN/FEVER 10/06/17 05:00 10/07/17 04:59 Procedures/MDM Increasing cellulitis of the entire upper arm in a dialysis patient with access on that side. No signs of systemic spread of infection at this time. Was given a liter of normal saline and morphine for his pain of the morphine wore off and he had continued pain. This appears to be a significant infection I think he warrants admission for IV antibiotics as is a potentially limb threatening infection and could lead to systemic sepsis.. Attempted venous ultrasound to look for DVT however because of the fistula the venous structures was adjacent to the graft in extractions technologist was unable to perform the study and recommended ultrasound of the graft itself. He was given vancomycin and Zosyn after blood cultures were obtained. I spoke with Dr. Hughes who agrees to admission. Upper extremity arterial ultrasound of dialysis access: Patent with good blood flow, no signs of blockages. Departure Diagnosis: Primary Impression: Left arm cellulitis Condition: KAMARI Aguirre DO Oct 06, 2017 04:58
[2017-10-06] MEDS ORDERED: ACETAMINOPHEN 325 MG TAB PO PRN ×2 (05:00→05:30)
[2017-10-06] MEDS ORDERED: ONDANSETRON 4 MG INJ IV PRN (05:00)
[2017-10-06] MEDS ORDERED: NACL 0.9% 3 ML SYG IV SCH (05:30)
[2017-10-06] MEDS ORDERED: VANCOMYCIN IV PER PHARMACY XX SCH (05:30)
[2017-10-06] MEDS ORDERED: ONDANSETRON 4 MG TAB PO PRN (05:30)
[2017-10-06] MEDS ORDERED: DOCUSATE SODIUM 100 MG CAP PO PRN (05:30)
[2017-10-06 05:37] VITALS: Ht 165.1 cm; Wt 89.8 kg
[2017-10-06 06:42] VITALS: BP 148/66; PULSE 50; RESP 18
[2017-10-06] MEDS ORDERED: VANCOMYCIN 1.75 GM in NS 500 ML IVPB SCH (08:00)
[2017-10-06 08:13] VITALS: BP 128/58; RESP 19
--- NOTE | 2017-10-06 08:28 | RADRPT ---
PROCEDURE: US left upper extremity AV fistula/graft CLINICAL INDICATION: End-stage renal disease, poorly functioning AV fistula, pain TECHNIQUE: Multiple sonographic images of the left upper extremity arteries, veins and hemodialysi s access was obtained utilizing grayscale, color-flow, compressive sonography and doppler imaging. The images were reviewed on a PACS workstation. COMPARISON: None. FINDINGS: There is a left upper extremity AV fistula which is widely patent. Velocities, and measurements were obtained: Upper outflow vein: 550.3 cm/s; flow 1472 ml/min; diameter 4.7 mm Mid outflow vein: 483.4 cm/s; ; flow 1978 ml/min; diameter 5.9 mm Lower outflow vein: 374.9 cm/s; ; flow 4549 ml/min; diameter 11.1 mm Arterial anastomosis: 277.2 cm/s; flow 693.4 ml/min; diameter 4.2 mm Inflow artery : 230.5 cm/s; flow 783.2 ml/min; diameter 4.5 mm Left radial and ulnar arteries with monophasic waveforms. IMPRESSION: Elevated velocities in the AVF suggestive of multifocal stenosis. AVF otherwise widely patent. Sever al aneurysmal dilatations noted. RPTAT: AA Physician Rylie Date Time Electronically viewed and signed by Physician Rylie on 10/06/2017 08:28 CT/
[2017-10-06] MEDS ORDERED: FAMOTIDINE 20 MG TAB PO SCH (09:00)
[2017-10-06] MEDS: L ACIDOPHIL/B LACTIS/B LONGUM CAPSULE PO SCH ×2 (09:13→21:05)
[2017-10-06] MEDS ORDERED: PIPER-TAZO 2.25 GM (PMX) 50 ML IVPB SCH ×2 (12:00→15:30)
[2017-10-06] MEDS ORDERED: GLUCOSE GEL 15 GRAM TUBE PO PRN ×2 (13:00)
[2017-10-06] MEDS ORDERED: DEXTROSE 50% 50 ML SYRINGE IV PRN ×2 (13:00)
[2017-10-06] MEDS ORDERED: GLUCOSE GEL 15 GRAM TUBE BUCCAL PRN (13:00)
[2017-10-06] MEDS ORDERED: GLUCAGON 1 MG INJ IM PRN (13:00)
[2017-10-06] MEDS: INSULIN ASPART [NOVOLOG] 3 ML PEN SC SCH ×3 (13:04→21:07)
[2017-10-06 14:28] VITALS: BP 145/66; RESP 19
[2017-10-06] MEDS: HYDROCODONE/APAP (5/325) TAB PO PRN ×2 (17:37→23:43)
--- NOTE | 2017-10-06 17:51 | HP ---
DATE OF ADMISSION: 10/06/2017 CHIEF COMPLAINT: "I have swelling in my left arm for 3 to 4 weeks." Please note the history of present illness is limited as the patient has moderate dementia and history is obtained from the patient's son who is out of town and not close to any of his medical records. HISTORY OF PRESENT ILLNESS: The patient is a pleasant 61-year-old male with ESRD on hemodialysis, dementia (moderate), diabetes mellitus, and hypertension, who was in his usual state of health until the last 2 to 3 weeks until he developed further worsening swelling of his left upper extremity. The patient has an AV fistula in the left upper extremity and the first one was placed approximately 5 years ago. A second fistula was placed to the left upper extremity in 2015. The patient has been seeing Dr. Mccann from the vascular surgery service for the intermittent swelling and workup was underway which includes vein mapping and other studies to determine what needs to be done to help with this upper extremity swelling. The patient had elevated his arm intermittently and that had helped; however, in the last 2 to 3 weeks it has gotten much worse and a little bit painful. For this reason, he was sent to the emergency department for further evaluation and treatment. In the emergency department, the patient had imaging studies of his left upper extremity which includes sonographic images of the arteries, veins, and hemodialysis access and there were elevated velocities in the AV fistula suggestive of multifocal stenoses. The AV fistula was otherwise widely patent and there were several aneurysmal dilatations noted. I spoke to Dr. Mccann who will be consulting on the patient. Of note, the patient undergoes hemodialysis on Saturday, and Saturday at [facility]. ALLERGIES: NO KNOWN DRUG ALLERGIES. MEDICATIONS: Not known. The patient does take 80 units of Lantus; however, son could not recall his other meds. [facility] SOCIAL HISTORY: The patient denies any alcohol or tobacco use. He has moderate dementia. His son, Abdiel, takes care of him. The son's phone number is [phone]. The patient lives at [facility]. [facility] and the number is [phone]. FAMILY HISTORY: Essentially noncontributory. REVIEW OF SYSTEMS: Limited as the patient is a poor historian. PHYSICAL EXAMINATION: VITAL SIGNS: His temperature is 97.4, blood pressure is stable at 128/58, pulse rate ranged from 50 to 54, respiratory rate of 19, oxygen saturation is 96 % on room air. HEENT: Normocephalic, atraumatic. Extraocular movements are intact. His pupils are equal, round, reactive to light and accommodation. His oropharynx was dry and his dentition is poor. NECK: No JVD was noted. No thyromegaly was noted. CARDIOVASCULAR: Had a regular rate and rhythm without appreciable murmurs, rubs , or gallops. LUNGS: Clear to auscultation bilaterally without rales, rhonchi or crackles. ABDOMEN: Mildly distended but soft, nontender, nondistended with normoactive bowel sounds present in all 4 quadrants. EXTREMITIES: He has no pitting edema in lower extremities. His right upper extremity was normal. His left upper extremity is markedly swollen through from the proximal part of the shoulder all the way down to his fingers. He has limited range of motion. He has 2+ radial pulse; however. No pain to palpation was noted. LABORATORIES/TESTS: His white count is 6.1, hemoglobin 10.4, hematocrit ____, platelet count of 138,000. His sodium 142, potassium 4.4, chloride 98, bicarbonate 34, anion gap 14, BUN 20, creatinine 4.29, glucose 206, calcium 9.4. IMPRESSION: 1. The patient is a pleasant 61-year-old gentleman who presents with left upper extremity swelling, it is chronic in nature. The patient's ultrasound did reveal elevated velocities in AV fistula suggestive of multifocal stenoses. Dr. Mccann has been consulted. He will see the patient in consultation and appropriate, and the patient may need additional vein mapping for revision of his fistula if the stenotic areas cannot be opened. The patient's son has been kept abreast of the plan of care and we will continue to update him. The patient at this point is comfortable and will have his left upper extremity elevated. I will call the [facility] to determine who his hemodialysis doctor is. 2. Diabetes mellitus type 2: Stable. I will check hemoglobin A1c, do Accu- Cheks at bedtime and q.a.c. The patient will be placed on a 2000 calorie ADA diet, and he will be started on his Lantus 8 units once daily. 3. Dementia: Stable. Dictated By: LISA MOODY MD SH/NTS Conf#: [id number] DID#: [id number] CC: DEIDRA LIRA MD;*EndCC* MTDD
--- NOTE | 2017-10-06 18:45 | CONS ---
DATE OF ADMISSION: 10/06/2017 DATE OF CONSULTATION: 10/06/2017 VASCULAR SURGERY CONSULTATION NOTE Dear Doctors: Mr. Lam is a 61-year-old gentleman known to our vascular surgery service secondary to history of e nd-stage renal disease in which he underwent a left upper extremity brachiobasilic fistula creation and transposition in the past. The patient had been under our vascular surgery surveillance regardi ng his fistula and his development of persistent left upper extremity edema. The patient originally had intermittent edema with his left upper extremity as he has a cephalic arch stenosis/occlusion n ear the axillary vein in which his main venous flow has to be rerouted via other collaterals. Howev er, over the past few months, the patient's left upper extremity fistula had become pretty much pers istent and had become quite discomforting and painful for the patient. The patient was recently see n in our office regarding this matter and decision was made to create a plan for him to have his fis mary revised if possible, otherwise create a new fistula and ligation of the left upper extremity fi stula. At the moment, the patient denies shortness of breath, chest pain, nausea, vomiting, fever o r chills. He denies left upper extremity claudication or rest pain-like symptoms. However, the balbir ma does provide discomfort for him. REVIEW OF SYSTEMS: A 14-point review performed and negative except what is mentioned in the HPI. PAST MEDICAL HISTORY: Entails end-stage renal disease, anemia of chronic disease, hypertension, hyp ercholesterolemia, mild dementia, diabetes, ex-smoker, left upper extremity edema and central stenos is. PAST SURGICAL HISTORY: Upper extremity fistula creation, multiple chest wall catheters. ALLERGIES: NO KNOWN DRUG ALLERGIES. SOCIAL HISTORY: Denies tobacco, alcohol or illicit drug use. Previous history of alcohol and smoki ng. FAMILY HISTORY: Positive for hypertension. PHYSICAL EXAMINATION: GENERAL: The patient is alert and oriented x3 and can answer some simple questions; however, more d ifficult questions he prefers that we speak with his son regarding the matters. HEENT: Normocephalic, atraumatic. EOMI. Mucosa moist. NECK: Supple. No carotid bruit. Edema of the left chest. CARDIOVASCULAR: S1, S2 present. No murmurs. PULMONARY: Clear to auscultation bilaterally. No crackles. Some superficial veins. ABDOMEN: Soft, nontender, nondistended. Bowel sounds positive. Truncal obesity. EXTREMITIES: Palpable femoral pulse. Nonpalpable pedal pulse. Motor and sensory intact. Capillar y refill 3 to 4 seconds. Left upper extremity: Unable to palpate the brachial pulse secondary to e ai. Motor and sensory intact; however, limited secondary to significant edema of his wrist and hi s fingers. Capillary refill 2 to 3 seconds. Surgical scar well healed. Fistula with bruit and thr ill present. Edema from his hand all the way up to his deltopectoral groove. ASSESSMENT AND PLAN: End-stage renal disease and central stenosis: It seems that the patient's latoya nosis/occlusion of the cephalic arch near the axillary vein junction has worsened his left upper ext remity edema. As this has become quite discomforting for the patient, will plan to intervene in ord er to, if possible, salvage the left upper extremity fistula obtaining a central access. Will plan to order a fistulogram and perhaps get across the area that is occluded in the axillary vein v ersus possible central catheter placement such as a HeRO that will connect to his left upper extrem ity fistula. Optimize vascular status (BP meds, diet, nutrition, exercise, sugar control, antiplatelets). Keep his left upper extremity elevated at all times. May still continue with his dialysis via the left upper extremity AV fistula. Discussed findings, plan and management with the patient and his son. Thank you for allowing us to partake in the care of your patient. Please call with any questions. Dictated By: ASHLEY CURTIS/MAIRA Conf#: [id number] DID#: [id number] CC: DEIDRA LIRA MD;*EndCC*
[2017-10-06 20:24] VITALS: BP 142/67; RESP 18
[2017-10-06] MEDS: INSULIN GLARGINE [LANtus] 3 ML PEN SC SCH (21:06)
[2017-10-07] MEDS: ACCU-CHEK XX SCH ×2 (01:54)
[2017-10-07 03:43] VITALS: BP 142/67; RESP 18
[2017-10-07 06:14] LABS: BASOPHIL # 0.1 10^3/ul (0.0-0.1); BASOPHILS % 1.4 % (0.0-2.0); EOSINOPHILS # 0.1 10^3/ul (0.0-0.5); EOSINOPHILS % 2.2 % (0.0-7.0); HEMATOCRIT 33.3 % (42.0-52.0); HEMOGLOBIN 10.5 g/dl (14.0-18.0); LYMPHOCYTES # 1.8 10^3/ul (0.8-2.9); LYMPHOCYTES % 28.8 % (15.0-51.0); MEAN CORPUSCULAR HEMOGLOBIN 34.3 pg (29.0-33.0); MEAN CORPUSCULAR HGB CONC 31.5 g/dl (32.0-37.0); MEAN CORPUSCULAR VOLUME 108.8 fl (82.0-101.0); MEAN PLATELET VOLUME 10.5 fl (7.4-10.4); MONOCYTE # 0.7 10^3/ul (0.3-0.9); NEUTROPHIL # 3.5 10^3/ul (1.6-7.5); NEUTROPHILS % 56.3 % (39.0-77.0); PLATELET COUNT 137 10^3/UL (140-415); RED BLOOD COUNT 3.06 10^6/ul (4.70-6.10); RED CELL DISTRIBUTION WIDTH 14.1 % (11.5-14.5); WHITE BLOOD COUNT 6.3 10^3/ul (4.8-10.8)
[2017-10-07 06:40] LABS: CALCIUM 9.2 mg/dl (8.4-10.2); CREATININE 6.42 mg/dl (0.61-1.24); POTASSIUM 4.4 mmol/L (3.5-5.1)
[2017-10-07 06:46] LABS: ALBUMIN 3.5 g/dl (3.3-4.9); CALCIUM 9.4 mg/dl (8.4-10.2); CREATININE 6.27 mg/dl (0.61-1.24); PHOSPHORUS 4.4 mg/dl (2.5-4.9); POTASSIUM 4.6 mmol/L (3.5-5.1)
[2017-10-07 07:50] VITALS: BP 167/79; RESP 16
[2017-10-07] MEDS: INSULIN ASPART [NOVOLOG] 3 ML PEN SC SCH ×4 (08:00→20:48)
[2017-10-07] MEDS: L ACIDOPHIL/B LACTIS/B LONGUM CAPSULE PO SCH ×2 (08:36→20:43)
--- NOTE | 2017-10-07 11:56 | CONS ---
Date/Time of Note Date/Time of Note DATE: 10/07/17 TIME: 11:55 Assessment/Plan Assessment/Plan Additional Assessment/Plan 1. ESRD on HD Three times a week 2.Left upper extremity swelling, it is chronic in nature. AV fistula Doppler suggestive of multifocal stenoses. Possible secondary cellulitis 3. HTN 4. Type II DM 5. Hypothyroidism 6. Hyperlipidemia 7. dementia Plan: IV abx cellulitis BP stable pt follows at [facility] HD center, regular schedule is TTS- will plan for HD tomorrow s/p vascular surgery consult - Plan for AVFistuogram by vascular surgery. will follow up Consultation Date/Type/Reason Admit Date/Time Oct 06, 2017 at 13:27 Date of Consultation: Oct 07, 2017 Type of Consultation: NEPHROLOGY Reason for Consultation ESRD on HD for maintainance HD , pt with central stenosis Referring Provider: LISA MOODY MD Hx of Present Illness 61-year-old male with ESRD on hemodialysis, dementia (moderate), diabetes mellitus, and hypertension, who was in his usual state of health until the last 2 to 3 weeks until he developed further worsening swelling of his left upper extremity. The patient has an AV fistula in the left upper extremity and the first one was placed approximately 5 years ago. A second fistula was placed to the left upper extremity in 2015. The patient has been seeing Dr. Mccann from the vascular surgery service for the intermittent swelling and workup was underway which includes vein mapping and other studies to determine what needs to be done to help with this upper extremity swelling. started on IV abx for AVF site celluitis, Renal has been consulted for Maintainance HD Past Medical History Medical History: diabetes, high cholesterol, hypertension, hypothyroid, other ( ESRD on HD ) Past Surgical History Past Surgical Hx: other (Permacath, AVF for HD access ) Family History Significant Family History: no pertinent family hx Social History Alcohol Use: none Smoking Status: Never smoker Drug Use: none Exam/Review of Systems Vital Signs Vitals Vital Signs Date Time Temp Pulse Resp B/P Pulse Ox O2 Delivery O2 Flow Rate FiO2 10/07/17 07:50 98.1 66 16 167/79 97 10/06/17 06:42 Room Air Intake and Output 10/06/17 10/06/17 10/07/17 15:00 23:00 07:00 Intake Total 1570 ml 320 ml Balance 1570 ml 320 ml Exam Constitutional: alert Psych: no complaints Head: normocephalic Eyes: nl conjunctiva ENMT: nl external ears & nose Neck: non-tender, supple Respiratory: clear to auscultation, normal air movement Cardiovascular: nl pulses, regular rate and rhythm Gastrointestinal: non-tender, soft Musculoskeletal: other (LUE AVF site swelling ) Extremities: normal pulses 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: HAND [employer] WORK[employer] II-XII intact, nl mental status, nl speech, nl strength Skin: nl turgor Results Result Diagram: 10/07/17 0504 10/07/17 0504 Results 24 hrs Laboratory Tests Test 10/06/17 12:49 10/06/17 17:30 10/06/17 21:03 10/07/17 01:41 Bedside Glucose 150 146 196 116 Test 10/07/17 05:04 10/07/17 07:59 White Blood Count 6.3 Red Blood Count 3.06 L Hemoglobin 10.5 L Hematocrit 33.3 L Mean Corpuscular Volume 108.8 H Mean Corpuscular Hemoglobin 34.3 H Mean Corpuscular Hemoglobin Concent 31.5 L Red Cell Distribution Width 14.1 Platelet Count 137 L Mean Platelet Volume 10.5 H Neutrophils % 56.3 Lymphocytes % 28.8 Monocytes % 11.0 Eosinophils % 2.2 Basophils % 1.4 Nucleated Red Blood Cells % 0.0 Neutrophils # 3.5 Lymphocytes # 1.8 Monocytes # 0.7 Eosinophils # 0.1 Basophils # 0.1 Nucleated Red Blood Cells # 0.0 Sodium Level 143 Potassium Level 4.6 Chloride Level 101 Carbon Dioxide Level 32 H Anion Gap 15 Blood Urea Nitrogen 32 H Creatinine 6.27 H Glucose Level 97 Hemoglobin A1c 6.0 H Calcium Level 9.4 Phosphorus Level 4.4 Albumin 3.5 Bedside Glucose 89 Medications Medications Current Medications Ondansetron HCl (Zofran Tab) 4 mg Q6H PRN PO NAUSEA AND/OR VOMITING; Start 11/10 at 05:30 Acetaminophen (Tylenol Tab) 650 mg Q6H PRN PO PAIN LEVEL 1-3 OR FEVER; Start 10/06/17 at 05:30 Acetaminophen/ Hydrocodone Bitart ([place] (5/325)) 1 tab Q6H PRN PO MODERATE PAIN LEVEL 4-6 Last administered on 10/06/17t 23:43; Admin Dose 1 TAB; Start 10/06/17 at 05:30 Docusate Sodium (Colace) 100 mg Q12H PRN PO CONSTIPATION; Start 10/06/17 at 05 :30 Famotidine (Pepcid) 20 mg Q48H PO Last administered on 10/06/17 09:13; Admin Dose 20 MG; Start 10/06/17 at 09:00 Lactobacillus Acidophilus (Florajen3 Capsule) 1 each BID PO Last administered on 10/07/17 08:36; Admin Dose 1 EACH; Start 10/06/17 at 09:00 Diagnostic Test (Pha) (Accu-Chek) 1 ea 02 XX Last administered on 10/07/17 01 :54; Admin Dose 1 EA; Start 10/07/17 at 02:00 Diagnostic Test (Pha) (Accu-Chek) 1 ea 02 XX Last administered on 10/07/17 01 :54; Admin Dose 1 EA; Start 10/07/17 at 02:00 Miscellaneous Information 1 ea NOTE XX ; Start 10/06/17 at 13:00 Glucose (Glutose) 15 gm Q15M PRN PO DECREASED GLUCOSE; Start 10/06/17 at 13:00 Glucose (Glutose) 22.5 gm Q15M PRN PO DECREASED GLUCOSE; Start 10/06/17 at 13: 00 Dextrose (D50w Syringe) 25 ml Q15M PRN IV DECREASED GLUCOSE; Start 10/06/17 at 13:00 Dextrose (D50w Syringe) 50 ml Q15M PRN IV DECREASED GLUCOSE; Start 10/06/17 at 13:00 Glucagon (Glucagen) 1 mg Q15M PRN IM DECREASED GLUCOSE; Start 10/06/17 at 13: 00 Glucose (Glutose) 15 gm Q15M PRN BUCCAL DECREASED GLUCOSE; Start 10/06/17 at 13:00 Insulin Glargine (Lantus) 8 unit DAILY@20 SC Last administered on 10/06/17 21 :06; Admin Dose 8 UNIT; Start 10/06/17 at 20:00 Miscellaneous Information (*Rx Drug Level Order Reminder*) 1 ONCE ONCE XX ; Start 10/08/17 at 05:00; Stop 10/08/17 at 05:01 AMY LIZAMA MD Oct 07, 2017 11:56
[2017-10-07] MEDS: HYDROCODONE/APAP (5/325) TAB PO PRN ×2 (14:29→23:39)
[2017-10-07 14:33] VITALS: BP 167/72; RESP 18
--- NOTE | 2017-10-07 18:54 | PN ---
Date/Time of Note Date/Time of Note DATE: 10/07/17 TIME: 18:25 Assessment/Plan VTE Prophylaxis VTE Prophylaxis Intervention: SCD's Lines/Catheters IV [facility]from [facility] Saline Lock Urinary Cath still in place: No Assessment/Plan Assessment/Plan 61-year-old man with: 1. Left upper extremity swelling, it is chronic in nature. AV fistula Doppler suggestive of multifocal stenoses. Possible secondary cellulitis Blood cultures 11/25 with the mix of gram-positive cocci in chains and cluster patient already on Vancomycin dose per pharmacy. We will repeat blood cultures 2. Dr. Mccann has seen the patient, plan for fistulogram and additional procedure or placement of catheter depending on results. Keep left upper extremity elevated. Per vascular surgery, okay to keep using the AV fistula if able to dialyze through it, if not able to dialyze through it he will need placement of a catheter. 2. Hypertension: Resume Toprol-XL, isosorbide, amlodipine. Will add hydralazine as needed. Patient due for dialysis tomorrow. 3. End-stage renal disease: On hemodialysis, T/T/S. Appreciate assistance from Dr. Aranda, next dialysis due tomorrow. Resume Renvela 4. Diabetes mellitus type 2: Stable. Resume outpatient regimen, patient on Lantus 10 units subcutaneously nightly and NovoLog 3 units q. before meals. 5. Dementia: Stable. Continue outpatient medications. 6. Hypothyroidism: Continue levothyroxine 7. Hyperlipidemia: Continue lovastatin 8. GERD: Continue proton pump inhibitors Prophylaxis: SCDs for DVT prophylaxis, resume proton pump inhibitors Disposition: Dialysis tomorrow, vascular surgery to reevaluate fistula stenoses , follow-up repeat blood culture Subjective 24 Hr Interval Summary Free Text/Dictation Patient alert oriented 1 at most, comfortable, condom catheter in place, chronic edema of the left upper extremity. Remains afebrile and WBC within normal, however reported blood culture 11/25 positive with gram-positive cocci, already on vancomycin. Exam/Review of Systems Vital Signs Vitals Vital Signs Date Time Temp Pulse Resp B/P Pulse Ox O2 Delivery O2 Flow Rate FiO2 10/07/17 14:33 98.3 50 18 167/72 96 10/06/17 06:42 Room Air Intake and Output 10/06/17 10/06/17 10/07/17 15:00 23:00 07:00 Intake Total 1570 ml 320 ml Balance 1570 ml 320 ml Exam Constitutional: alert, frail, oriented (x1) Respiratory: clear to auscultation, normal air movement Cardiovascular: nl pulses, regular rate and rhythm Gastrointestinal: non-tender, soft Musculoskeletal: swelling (Noted significant swelling of the left upper extremity) Extremities: normal pulses, other (clubbing or cyanosis) 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, lethargic, other (Mental status at baseline) Results Result Diagram: 10/07/17 0504 10/07/17 0504 Results 24 hrs Laboratory Tests Test 10/06/17 21:03 10/07/17 01:41 10/07/17 05:04 10/07/17 07:59 Bedside Glucose 196 116 89 White Blood Count 6.3 Red Blood Count 3.06 L Hemoglobin 10.5 L Hematocrit 33.3 L Mean Corpuscular Volume 108.8 H Mean Corpuscular Hemoglobin 34.3 H Mean Corpuscular Hemoglobin Concent 31.5 L Red Cell Distribution Width 14.1 Platelet Count 137 L Mean Platelet Volume 10.5 H Neutrophils % 56.3 Lymphocytes % 28.8 Monocytes % 11.0 Eosinophils % 2.2 Basophils % 1.4 Nucleated Red Blood Cells % 0.0 Neutrophils # 3.5 Lymphocytes # 1.8 Monocytes # 0.7 Eosinophils # 0.1 Basophils # 0.1 Nucleated Red Blood Cells # 0.0 Sodium Level 143 Potassium Level 4.6 Chloride Level 101 Carbon Dioxide Level 32 H Anion Gap 15 Blood Urea Nitrogen 32 H Creatinine 6.27 H Glucose Level 97 Hemoglobin A1c 6.0 H Calcium Level 9.4 Phosphorus Level 4.4 Albumin 3.5 Test 10/07/17 11:53 10/07/17 16:51 Bedside Glucose 115 131 Medications Medications Current Medications Ondansetron HCl (Zofran Tab) 4 mg Q6H PRN PO NAUSEA AND/OR VOMITING; Start 11/10 at 05:30 Acetaminophen (Tylenol Tab) 650 mg Q6H PRN PO PAIN LEVEL 1-3 OR FEVER; Start 10/06/17 at 05:30 Acetaminophen/ Hydrocodone Bitart ([place] (5/325)) 1 tab Q6H PRN PO MODERATE PAIN LEVEL 4-6 Last administered on 10/07/17t 14:29; Admin Dose 1 TAB; Start 10/06/17 at 05:30 Docusate Sodium (Colace) 100 mg Q12H PRN PO CONSTIPATION; Start 10/06/17 at 05 :30 Famotidine (Pepcid) 20 mg Q48H PO Last administered on 10/06/17 09:13; Admin Dose 20 MG; Start 10/06/17 at 09:00 Lactobacillus Acidophilus (Florajen3 Capsule) 1 each BID PO Last administered on 10/07/17 08:36; Admin Dose 1 EACH; Start 10/06/17 at 09:00 Diagnostic Test (Pha) (Accu-Chek) 1 ea 02 XX Last administered on 10/07/17 01 :54; Admin Dose 1 EA; Start 10/07/17 at 02:00 Diagnostic Test (Pha) (Accu-Chek) 1 ea 02 XX Last administered on 10/07/17 01 :54; Admin Dose 1 EA; Start 10/07/17 at 02:00 Miscellaneous Information 1 ea NOTE XX ; Start 10/06/17 at 13:00 Glucose (Glutose) 15 gm Q15M PRN PO DECREASED GLUCOSE; Start 10/06/17 at 13:00 Glucose (Glutose) 22.5 gm Q15M PRN PO DECREASED GLUCOSE; Start 10/06/17 at 13: 00 Dextrose (D50w Syringe) 25 ml Q15M PRN IV DECREASED GLUCOSE; Start 10/06/17 at 13:00 Dextrose (D50w Syringe) 50 ml Q15M PRN IV DECREASED GLUCOSE; Start 10/06/17 at 13:00 Glucagon (Glucagen) 1 mg Q15M PRN IM DECREASED GLUCOSE; Start 10/06/17 at 13: 00 Glucose (Glutose) 15 gm Q15M PRN BUCCAL DECREASED GLUCOSE; Start 10/06/17 at 13:00 Insulin Glargine (Lantus) 8 unit DAILY@20 SC Last administered on 10/06/17 21 :06; Admin Dose 8 UNIT; Start 10/06/17 at 20:00 Miscellaneous Information (*Rx Drug Level Order Reminder*) 1 ONCE ONCE XX ; Start 10/08/17 at 05:00; Stop 10/08/17 at 05:01 DAYSI CORMIER Oct 07, 2017 18:36
[2017-10-07] MEDS ORDERED: NITROGLYCERIN (SL) 0.4 MG TAB SL PRN (19:00)
[2017-10-07] MEDS ORDERED: hydrALAzine 20 MG INJ IV PRN (19:00)
[2017-10-07] MEDS ORDERED: MAGNESIUM HYDROXIDE 30ML CUP PO PRN (19:00)
[2017-10-07] MEDS: ISOSORBIDE MONONITRATE(SR)60 MG TAB PO SCH (19:48)
[2017-10-07] MEDS: INSULIN GLARGINE [LANtus] 3 ML PEN SC SCH (19:52)
[2017-10-07 20:00] VITALS: BP 159/71; RESP 18
[2017-10-07] MEDS: ATORVASTATIN 20 MG TAB PO SCH (20:43)
[2017-10-07] MEDS: DIVALPROEX (EC) 250 MG TAB PO SCH (20:43)
[2017-10-07] MEDS: OLANZAPINE 2.5 MG TAB PO SCH (20:44)
[2017-10-07 20:45] VITALS: BP 142/61; PULSE 50
[2017-10-07] MEDS: AMLODIPINE 5 MG TAB PO SCH (20:47)
[2017-10-08] VITALS (10 sets, daily range): BP systolic 102–148; BP diastolic 49–67; PULSE 58–61; RESP 17–19
[2017-10-08] MEDS: ACCU-CHEK XX SCH ×2 (01:39)
[2017-10-08] MEDS: LEVOTHYROXINE 25 MCG TAB PO SCH (05:30)
[2017-10-08] MEDS: PANTOPRAZOLE (EC) 40 MG TAB PO SCH (05:30)
[2017-10-08] MEDS: LEVOTHYROXINE 100 MCG TAB PO SCH (05:30)
[2017-10-08 05:38] LABS: BASOPHILS % 0.3 % (0.0-2.0); EOSINOPHILS # 0.1 10^3/ul (0.0-0.5); EOSINOPHILS % 1.2 % (0.0-7.0); HEMATOCRIT 30.8 % (42.0-52.0); HEMOGLOBIN 10.1 g/dl (14.0-18.0); LYMPHOCYTES # 1.8 10^3/ul (0.8-2.9); LYMPHOCYTES % 28.8 % (15.0-51.0); MEAN CORPUSCULAR HEMOGLOBIN 35.7 pg (29.0-33.0); MEAN CORPUSCULAR HGB CONC 32.8 g/dl (32.0-37.0); MEAN CORPUSCULAR VOLUME 108.8 fl (82.0-101.0); MEAN PLATELET VOLUME 10.2 fl (7.4-10.4); MONOCYTE # 0.8 10^3/ul (0.3-0.9); MONOCYTES % 12.7 % (0.0-11.0); NEUTROPHIL # 3.5 10^3/ul (1.6-7.5); NEUTROPHILS % 56.7 % (39.0-77.0); PLATELET COUNT 155 10^3/UL (140-415); RED BLOOD COUNT 2.83 10^6/ul (4.70-6.10); RED CELL DISTRIBUTION WIDTH 13.7 % (11.5-14.5); WHITE BLOOD COUNT 6.1 10^3/ul (4.8-10.8)
[2017-10-08 06:18] LABS: CREATININE 8.01 mg/dl (0.61-1.24)
[2017-10-08 07:11] LABS: MAGNESIUM 2.1 mg/dl (1.7-2.5)
[2017-10-08] MEDS: INSULIN ASPART [NOVOLOG] 3 ML PEN SC SCH ×7 (08:00→20:31)
[2017-10-08] MEDS: SEVELAMER CARBONATE 0.8 GM PKT PO SCH ×3 (08:23→17:06)
[2017-10-08] MEDS: DIVALPROEX (EC) 250 MG TAB PO SCH ×2 (08:24→20:32)
[2017-10-08] MEDS: CLOPIDOGREL 75 MG TAB PO SCH (08:26)
[2017-10-08] MEDS: L ACIDOPHIL/B LACTIS/B LONGUM CAPSULE PO SCH ×2 (08:26→20:32)
[2017-10-08] MEDS: FOLIC ACID 1 MG TAB PO SCH (08:26)
[2017-10-08] MEDS: ASPIRIN (EC) 81 MG TAB PO SCH (08:26)
[2017-10-08] MEDS: AMLODIPINE 5 MG TAB PO SCH ×2 (09:00→20:33)
[2017-10-08] MEDS: METOPROLOL (XL) 25 MG TAB PO SCH (09:00)
[2017-10-08] MEDS: ISOSORBIDE MONONITRATE(SR)60 MG TAB PO SCH (09:00)
--- NOTE | 2017-10-08 11:36 | PN ---
Date/Time of Note Date/Time of Note DATE: 10/08/17 TIME: 11:31 Assessment/Plan VTE Prophylaxis VTE Prophylaxis Intervention: SCD's Lines/Catheters IV [facility] Type [facility]from [facility] Saline Lock Urinary Cath still in place: No Assessment/Plan Assessment/Plan 61-year-old man with: 1. Left upper extremity swelling, it is chronic in nature. AV fistula Doppler suggestive of multifocal stenoses. Possible secondary cellulitis Blood cultures 1/2 with coag negative staph on Vancomycin dose per pharmacy but possibility of contamination is high. Repeat blood cultures [address] Mccann has seen the patient, plan for fistulogram and additional procedure or placement of catheter depending on results. Keep left upper extremity elevated. Per vascular surgery, okay to keep using the AV fistula if able to dialyze through it, if not able to dialyze through it he will need placement of a catheter. 2. Hypertension: Continue Toprol-XL, isosorbide, amlodipine. Blood pressure better controlled. HD today. 3. End-stage renal disease: On hemodialysis, T/T/S. Appreciate assistance from Dr. Aranda, HD today. Continue Renvela 4. Diabetes mellitus type 2: Stable. Blood sugars are stable on slightly decreased dose of Lantus to 8 units subcutaneously nightly and NovoLog 3 units q. before meals. 5. Dementia: Stable. Continue outpatient medications. 6. Hypothyroidism: Continue levothyroxine 7. Hyperlipidemia: Continue lovastatin 8. GERD: Continue proton pump inhibitors Prophylaxis: SCDs for DVT prophylaxis, resume proton pump inhibitors Disposition: Dialysis today, vascular surgery to reevaluate fistula stenoses, follow-up repeat blood culture. Patient remained stable. Subjective 24 Hr Interval Summary Free Text/Dictation Patient mental status seems to be at baseline, he still has significant edema left upper extremity but not so much erythema. Awaiting for vascular surgery scheduling of his left upper extremity AV fistulogram. Dialysis plan today. Still on vancomycin. Repeat blood cultures pending, however blood cultures reported last night turned out to be coag negative staph 1/2 therefore most likely contaminant. Exam/Review of Systems Vital Signs Vitals Vital Signs Date Time Temp Pulse Resp B/P Pulse Ox O2 Delivery O2 Flow Rate FiO2 10/08/17 07:50 98.0 50 18 107/49 97 10/06/17 06:42 Room Air Intake and Output 10/07/17 10/07/17 10/08/17 15:00 23:00 07:00 Intake Total 760 ml 480 ml Output Total 100 ml Balance 760 ml 380 ml Exam Constitutional: alert, oriented (x2) Respiratory: clear to auscultation, normal air movement Cardiovascular: nl pulses, regular rate and rhythm Gastrointestinal: non-tender, soft Musculoskeletal: swelling (Chronic swelling left upper extremity secondary to AV fistula stenoses) Extremities: normal pulses 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: 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 II-XII 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, nl mental status, nl speech, other ( Generalized weakness) Results Result Diagram: 10/08/1752110/08/17521 Results 24 hrs Laboratory Tests Test 10/07/17 11:53 10/07/17 16:51 10/07/17 19:50 10/07/17 20:47 Bedside Glucose 115 131 152 144 Test 10/08/17 05:22 10/08/17 08:08 White Blood Count 6.1 Red Blood Count 2.83 L Hemoglobin 10.1 L Hematocrit 30.8 L Mean Corpuscular Volume 108.8 H Mean Corpuscular Hemoglobin 35.7 H Mean Corpuscular Hemoglobin Concent 32.8 Red Cell Distribution Width 13.7 Platelet Count 155 Mean Platelet Volume 10.2 Neutrophils % 56.7 Lymphocytes % 28.8 Monocytes % 12.7 H Eosinophils % 1.2 Basophils % 0.3 Nucleated Red Blood Cells % 0.0 Neutrophils # 3.5 Lymphocytes # 1.8 Monocytes # 0.8 Eosinophils # 0.1 Basophils # 0.0 Nucleated Red Blood Cells # 0.0 Sodium Level 140 Potassium Level 5.0 Chloride Level 100 Carbon Dioxide Level 29 Anion Gap 16 Blood Urea Nitrogen 46 #H Creatinine 8.01 H Glucose Level 102 Calcium Level 9.0 Phosphorus Level 5.0 H Magnesium Level 2.1 Random Vancomycin Level 15.5 Bedside Glucose 93 Medications Medications Current Medications Ondansetron HCl (Zofran Tab) 4 mg Q6H PRN PO NAUSEA AND/OR VOMITING; Start 11/10 at 05:30 Acetaminophen (Tylenol Tab) 650 mg Q6H PRN PO PAIN LEVEL 1-3 OR FEVER; Start 10/06/17 at 05:30 Acetaminophen/ Hydrocodone Bitart ([place] (5/325)) 1 tab Q6H PRN PO MODERATE PAIN LEVEL 4-6 Last administered on 10/07/17 23:39; Admin Dose 1 TAB; Start 10/06/17 at 05:30 Docusate Sodium (Colace) 100 mg Q12H PRN PO CONSTIPATION; Start 10/06/17 at 05 :30 Lactobacillus Acidophilus (Florajen3 Capsule) 1 each BID PO Last administered on 10/08/17 08:26; Admin Dose 1 EACH; Start 10/06/17 at 09:00 Diagnostic Test (Pha) (Accu-Chek) 1 ea 02 XX Last administered on 10/07/17 01 :54; Admin Dose 1 EA; Start 10/07/17 at 02:00 Diagnostic Test (Pha) (Accu-Chek) 1 ea 02 XX Last administered on 10/07/17 01 :54; Admin Dose 1 EA; Start 10/07/17 at 02:00 Miscellaneous Information 1 ea NOTE XX ; Start 10/06/17 at 13:00 Glucose (Glutose) 15 gm Q15M PRN PO DECREASED GLUCOSE; Start 10/06/17 at 13:00 Glucose (Glutose) 22.5 gm Q15M PRN PO DECREASED GLUCOSE; Start 10/06/17 at 13: 00 Dextrose (D50w Syringe) 25 ml Q15M PRN IV DECREASED GLUCOSE; Start 10/06/17 at 13:00 Dextrose (D50w Syringe) 50 ml Q15M PRN IV DECREASED GLUCOSE; Start 10/06/17 at 13:00 Glucagon (Glucagen) 1 mg Q15M PRN IM DECREASED GLUCOSE; Start 10/06/17 at 13: 00 Glucose (Glutose) 15 gm Q15M PRN BUCCAL DECREASED GLUCOSE; Start 10/06/17 at 13:00 Insulin Glargine (Lantus) 8 unit DAILY@20 SC Last administered on 10/07/17 19 :52; Admin Dose 8 UNIT; Start 10/06/17 at 20:00 Metoprolol Succinate (Toprol Xl) 25 mg DAILY PO ; Start 10/08/17 at 09:00 Levothyroxine Sodium (Synthroid) 200 mcg DAILY@06 PO Last administered on 10/08 05:30; Admin Dose 200 MCG; Start 10/08/17 at 06:00 Pantoprazole (Protonix Tab) 40 mg DAILY@06 PO Last administered on 10/08/17 05:30; Admin Dose 40 MG; Start 10/08/17 at 06:00 Atorvastatin Calcium (Lipitor) 20 mg HS PO Last administered on 10/07/17 20: 43; Admin Dose 20 MG; Start 10/07/17 at 21:00 Aspirin (Halfprin) 81 mg DAILY PO Last administered on 10/08/17 08:26; Admin Dose 81 MG; Start 10/08/17 at 09:00 Clopidogrel Bisulfate (plaVIX) 75 mg DAILY PO Last administered on 10/08/17 08:26; Admin Dose 75 MG; Start 10/08/17 at 09:00 Isosorbide Mononitrate (Imdur) 60 mg DAILY PO Last administered on 10/07/17 19:48; Admin Dose 60 MG; Start 10/07/17 at 19:00 Olanzapine (Zyprexa) 2.5 mg QHS PO Last administered on 10/07/17 20:44; Admin Dose 2.5 MG; Start 10/07/17 at 21:00 Amlodipine Besylate (Norvasc) 5 mg BID PO Last administered on 10/07/17 20:47 ; Admin Dose 5 MG; Start 10/07/17 at 21:00 Folic Acid (Folic Acid) 1 mg DAILY PO Last administered on 10/08/17 08:26; Admin Dose 1 MG; Start 10/08/17 at 09:00 Nitroglycerin (Nitroglycerin (Sl Tab) 0.4 Mg) 1 tab Q5M PRN SL ANGINA; Start 10/07/17 at 19:00 Hydralazine HCl (Apresoline) 10 mg Q8H PRN IV ELEVATED BLOOD PRESSURE; Start 10/07/17 at 19:00 Magnesium Hydroxide (Milk Of Mag) 30 ml DAILY PRN PO CONSTIPATION; Start 10/07 at 19:00 Divalproex Sodium (Depakote) 250 mg BID PO Last administered on 10/08/17 08: 24; Admin Dose 250 MG; Start 10/07/17 at 21:00 Levothyroxine Sodium (Synthroid) 25 mcg DAILY@06 PO Last administered on 05:30; Admin Dose 25 MCG; Start 10/08/17 at 06:00 DAYSI CORMIER Oct 08, 2017 11:36
[2017-10-08] MEDS ORDERED: VANCOMYCIN 1.25 GM in SOD CHLORIDE 0.9% 250 ML IVPB SCH (18:00)
--- NOTE | 2017-10-08 19:53 | CONS ---
Date/Time of Note Date/Time of Note DATE: 10/08/17 TIME: 19:50 Assessment/Plan Assessment/Plan Additional Assessment/Plan 1. ESRD on HD Three times a week 2.Left upper extremity swelling, it is chronic in nature. AV fistula Doppler suggestive of multifocal stenoses. Possible secondary cellulitis 3. HTN 4. Type II DM 5. Hypothyroidism 6. Hyperlipidemia 7. dementia Plan: IV abx cellulitis BP stable pt follows at [facility] HD center, regular schedule is TTS- s/p HD today 3 L removed, next HD will be on s/p vascular surgery consult - Balaji for AVFistuogram by vascular surgery. will follow up Consultation Date/Type/Reason Admit Date/Time Oct 06, 2017 at 13:27 Initial Consult Date 10/07/17 Type of Consultation: NEPHROLOGY Referring Provider: LISA MOODY MD 24 HR Interval Summary Free Text/Dictation Plan for HD tomorrow, BP stable, afebrile, no fever, no chills Exam/Review of Systems Vital Signs Vitals Vital Signs Date Time Temp Pulse Resp B/P Pulse Ox O2 Delivery O2 Flow Rate FiO2 10/08/17 13:00 58 10/08/17 13:00 18 10/08/17 07:50 98.0 107/49 97 10/06/17 06:42 Room Air Intake and Output 10/07/17 10/07/17 10/08/17 15:00 23:00 07:00 Intake Total 760 ml 480 ml Output Total 100 ml Balance 760 ml 380 ml Exam Constitutional: alert Respiratory: clear to auscultation, normal air movement Cardiovascular: nl pulses, regular rate and rhythm Gastrointestinal: non-tender, soft Musculoskeletal: other (LUE AVF site swelling ) Extremities: normal pulses 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, nl mental status, nl speech, nl strength Skin: nl turgor Results Result Diagram: 10/08/1752110/08/17521 Results 24 hrs Laboratory Tests Test 10/07/17 20:47 10/08/17 05:22 10/08/17 08:08 10/08/17 12:24 Bedside Glucose 144 93 204 White Blood Count 6.1 Red Blood Count 2.83 L Hemoglobin 10.1 L Hematocrit 30.8 L Mean Corpuscular Volume 108.8 H Mean Corpuscular Hemoglobin 35.7 H Mean Corpuscular Hemoglobin Concent 32.8 Red Cell Distribution Width 13.7 Platelet Count 155 Mean Platelet Volume 10.2 Neutrophils % 56.7 Lymphocytes % 28.8 Monocytes % 12.7 H Eosinophils % 1.2 Basophils % 0.3 Nucleated Red Blood Cells % 0.0 Neutrophils # 3.5 Lymphocytes # 1.8 Monocytes # 0.8 Eosinophils # 0.1 Basophils # 0.0 Nucleated Red Blood Cells # 0.0 Sodium Level 140 Potassium Level 5.0 Chloride Level 100 Carbon Dioxide Level 29 Anion Gap 16 Blood Urea Nitrogen 46 #H Creatinine 8.01 H Glucose Level 102 Calcium Level 9.0 Phosphorus Level 5.0 H Magnesium Level 2.1 Random Vancomycin Level 15.5 Test 10/08/17 17:05 Bedside Glucose 151 Medications Medications Current Medications Ondansetron HCl (Zofran Tab) 4 mg Q6H PRN PO NAUSEA AND/OR VOMITING; Start 11/10 at 05:30 Acetaminophen (Tylenol Tab) 650 mg Q6H PRN PO PAIN LEVEL 1-3 OR FEVER; Start 10/06/17 at 05:30 Acetaminophen/ Hydrocodone Bitart ([place] (5/325)) 1 tab Q6H PRN PO MODERATE PAIN LEVEL 4-6 Last administered on 10/07/17 23:39; Admin Dose 1 TAB; Start 10/06/17 at 05:30 Docusate Sodium (Colace) 100 mg Q12H PRN PO CONSTIPATION; Start 10/06/17 at 05 :30 Lactobacillus Acidophilus (Florajen3 Capsule) 1 each BID PO Last administered on 10/08/17 08:26; Admin Dose 1 EACH; Start 10/06/17 at 09:00 Diagnostic Test (Pha) (Accu-Chek) 1 ea 02 XX Last administered on 10/07/17 01 :54; Admin Dose 1 EA; Start 10/07/17 at 02:00 Diagnostic Test (Pha) (Accu-Chek) 1 ea 02 XX Last administered on 10/07/17 01 :54; Admin Dose 1 EA; Start 10/07/17 at 02:00 Miscellaneous Information 1 ea NOTE XX ; Start 10/06/17 at 13:00 Glucose (Glutose) 15 gm Q15M PRN PO DECREASED GLUCOSE; Start 10/06/17 at 13:00 Glucose (Glutose) 22.5 gm Q15M PRN PO DECREASED GLUCOSE; Start 10/06/17 at 13: 00 Dextrose (D50w Syringe) 25 ml Q15M PRN IV DECREASED GLUCOSE; Start 10/06/17 at 13:00 Dextrose (D50w Syringe) 50 ml Q15M PRN IV DECREASED GLUCOSE; Start 10/06/17 at 13:00 Glucagon (Glucagen) 1 mg Q15M PRN IM DECREASED GLUCOSE; Start 10/06/17 at 13: 00 Glucose (Glutose) 15 gm Q15M PRN BUCCAL DECREASED GLUCOSE; Start 10/06/17 at 13:00 Insulin Glargine (Lantus) 8 unit DAILY@20 SC Last administered on 10/07/17 19 :52; Admin Dose 8 UNIT; Start 10/06/17 at 20:00 Metoprolol Succinate (Toprol Xl) 25 mg DAILY PO ; Start 10/08/17 at 09:00 Levothyroxine Sodium (Synthroid) 200 mcg DAILY@06 PO Last administered on 10/08 05:30; Admin Dose 200 MCG; Start 10/08/17 at 06:00 Pantoprazole (Protonix Tab) 40 mg DAILY@06 PO Last administered on 10/08/17 05:30; Admin Dose 40 MG; Start 10/08/17 at 06:00 Atorvastatin Calcium (Lipitor) 20 mg HS PO Last administered on 10/07/17 20: 43; Admin Dose 20 MG; Start 10/07/17 at 21:00 Aspirin (Halfprin) 81 mg DAILY PO Last administered on 10/08/17 08:26; Admin Dose 81 MG; Start 10/08/17 at 09:00 Clopidogrel Bisulfate (plaVIX) 75 mg DAILY PO Last administered on 10/08/17 08:26; Admin Dose 75 MG; Start 10/08/17 at 09:00 Isosorbide Mononitrate (Imdur) 60 mg DAILY PO Last administered on 10/07/17 19:48; Admin Dose 60 MG; Start 10/07/17 at 19:00 Olanzapine (Zyprexa) 2.5 mg QHS PO Last administered on 10/07/17 20:44; Admin Dose 2.5 MG; Start 10/07/17 at 21:00 Amlodipine Besylate (Norvasc) 5 mg BID PO Last administered on 10/07/17 20:47 ; Admin Dose 5 MG; Start 10/07/17 at 21:00 Folic Acid (Folic Acid) 1 mg DAILY PO Last administered on 10/08/17 08:26; Admin Dose 1 MG; Start 10/08/17 at 09:00 Nitroglycerin (Nitroglycerin (Sl Tab) 0.4 Mg) 1 tab Q5M PRN SL ANGINA; Start 10/07/17 at 19:00 Hydralazine HCl (Apresoline) 10 mg Q8H PRN IV ELEVATED BLOOD PRESSURE; Start 10/07/17 at 19:00 Magnesium Hydroxide (Milk Of Mag) 30 ml DAILY PRN PO CONSTIPATION; Start 10/07 at 19:00 Divalproex Sodium (Depakote) 250 mg BID PO Last administered on 10/08/17 08: 24; Admin Dose 250 MG; Start 10/07/17 at 21:00 Levothyroxine Sodium 25 mcg 25 mcg DAILY@06 PO Last administered on 10/08/17 05:30; Admin Dose 25 MCG; Start 10/08/17 at 06:00 Vancomycin HCl/ Sodium Chloride (Vancocin/NS) 250 ml @ 83.333 mls/ hr ONCE IVPB Last administered on 10/08/17 17:06; Admin Dose 83.333 MLS/HR; Start at 18:00; Stop 10/08/17 at 23:59 AMY LIZAMA MD Oct 08, 2017 19:53
[2017-10-08] MEDS: OLANZAPINE 2.5 MG TAB PO SCH (20:32)
[2017-10-08] MEDS: ATORVASTATIN 20 MG TAB PO SCH (20:32)
[2017-10-08] MEDS: INSULIN GLARGINE [LANtus] 3 ML PEN SC SCH (20:32)
[2017-10-09] MEDS: ACCU-CHEK XX SCH ×2 (02:00)
[2017-10-09 02:14] VITALS: BP 132/70; RESP 18
[2017-10-09] MEDS: LEVOTHYROXINE 100 MCG TAB PO SCH (05:17)
[2017-10-09] MEDS: LEVOTHYROXINE 25 MCG TAB PO SCH (05:17)
[2017-10-09] MEDS: PANTOPRAZOLE (EC) 40 MG TAB PO SCH (05:17)
[2017-10-09 06:16] LABS: BASOPHILS % 0.4 % (0.0-2.0); EOSINOPHILS # 0.2 10^3/ul (0.0-0.5); EOSINOPHILS % 3.3 % (0.0-7.0); HEMOGLOBIN 11.2 g/dl (14.0-18.0); LYMPHOCYTES # 1.6 10^3/ul (0.8-2.9); LYMPHOCYTES % 29.2 % (15.0-51.0); MEAN CORPUSCULAR HEMOGLOBIN 35.1 pg (29.0-33.0); MEAN CORPUSCULAR VOLUME 109.7 fl (82.0-101.0); MEAN PLATELET VOLUME 10.7 fl (7.4-10.4); MONOCYTE # 0.8 10^3/ul (0.3-0.9); MONOCYTES % 14.8 % (0.0-11.0); NEUTROPHIL # 2.8 10^3/ul (1.6-7.5); NEUTROPHILS % 52.1 % (39.0-77.0); PLATELET COUNT 144 10^3/UL (140-415); RED BLOOD COUNT 3.19 10^6/ul (4.70-6.10); RED CELL DISTRIBUTION WIDTH 13.8 % (11.5-14.5); WHITE BLOOD COUNT 5.4 10^3/ul (4.8-10.8)
[2017-10-09 06:38] LABS: CALCIUM 9.6 mg/dl (8.4-10.2); CREATININE 6.86 mg/dl (0.61-1.24); POTASSIUM 4.2 mmol/L (3.5-5.1)
[2017-10-09 06:57] LABS: MAGNESIUM 2.3 mg/dl (1.7-2.5); PHOSPHORUS 4.7 mg/dl (2.5-4.9)
[2017-10-09] MEDS: INSULIN ASPART [NOVOLOG] 3 ML PEN SC SCH ×8 (07:35→20:31)
[2017-10-09 08:00] VITALS: BP 142/68; RESP 20
[2017-10-09] MEDS: L ACIDOPHIL/B LACTIS/B LONGUM CAPSULE PO SCH ×2 (08:17→20:28)
[2017-10-09] MEDS: SEVELAMER CARBONATE 0.8 GM PKT PO SCH ×3 (08:17→16:35)
[2017-10-09] MEDS: ISOSORBIDE MONONITRATE(SR)60 MG TAB PO SCH (08:17)
[2017-10-09] MEDS: CLOPIDOGREL 75 MG TAB PO SCH (08:17)
[2017-10-09] MEDS: AMLODIPINE 5 MG TAB PO SCH ×2 (08:17→20:37)
[2017-10-09] MEDS: DIVALPROEX (EC) 250 MG TAB PO SCH ×2 (08:17→20:28)
[2017-10-09] MEDS: FOLIC ACID 1 MG TAB PO SCH (08:17)
[2017-10-09] MEDS: ASPIRIN (EC) 81 MG TAB PO SCH (08:17)
[2017-10-09] MEDS: METOPROLOL (XL) 25 MG TAB PO SCH (08:18)
--- NOTE | 2017-10-09 11:52 | PN ---
Date/Time of Note Date/Time of Note DATE: 10/09/17 TIME: 11:48 Assessment/Plan VTE Prophylaxis VTE Prophylaxis Intervention: SCD's Lines/Catheters IV Catheter Type [facility]from [facility] Sal[facility] Urinary Cath still in place: No Assessment/Plan Assessment/Plan 61-year-old man with: 1. Left upper extremity swelling, it is chronic in nature. AV fistula Doppler suggestive of multifocal stenoses. Possible secondary cellulitis Blood cultures 1/2 with coag negative staph on Vancomycin dose per pharmacy but possibility of contamination is high. Repeat blood cultures NGTD. Dr. Mccann has seen the patient, plan for fistulogram today and additional procedure or placement of catheter depending on results. Keep left upper extremity elevated. Per vascular surgery, okay to keep using the AV fistula if able to dialyze through it, if not able to dialyze through it he will need placement of a catheter. 2. Hypertension: Continue Toprol-XL, isosorbide, amlodipine. Blood pressure better controlled. HD today. 3. End-stage renal disease: On hemodialysis, T/T/S. Appreciate assistance from Dr. Aranda, last HD was yesterday. Continue Renvela 4. Diabetes mellitus type 2: Stable. Blood sugars are stable on slightly decreased dose of Lantus to 8 units subcutaneously nightly and NovoLog 3 units q. before meals. 5. Dementia: Stable. Continue outpatient medications. 6. Hypothyroidism: Continue levothyroxine 7. Hyperlipidemia: Continue lovastatin 8. GERD: Continue proton pump inhibitors Prophylaxis: SCDs for DVT prophylaxis, resume proton pump inhibitors Disposition: Fistulogram today, vascular surgery to reevaluate fistula stenoses , follow-up repeat blood culture. Patient remained stable. Next HD tomorrow Subjective 24 Hr Interval Summary Free Text/Dictation Patient remained stable, plan for fistulogram today, next HD tomorrow. On vancomycin. Can be dosed with HD as an outpatient. Blood cultures repeated are negative, likely positive blood culture with coag negative staph 1/2 is a contaminant Exam/Review of Systems Vital Signs Vitals Vital Signs Date Time Temp Pulse Resp B/P Pulse Ox O2 Delivery O2 Flow Rate FiO2 10/09/17 08:00 97.9 50 20 142/68 97 10/06/17 06:42 Room Air Intake and Output 10/08/17 10/08/17 10/09/17 14:59 22:59 06:59 Intake Total 500 ml 525 ml 200 ml Output Total 3500 ml 3000 ml Balance -3000 ml -2475 ml 200 ml Exam Constitutional: alert, oriented (x2) Respiratory: clear to auscultation, normal air movement Cardiovascular: regular rate and rhythm Gastrointestinal: non-tender, soft Musculoskeletal: swelling (Left upper extremity, chronic. 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, confused (At baseline), other (Generalized weakness) Results Result Diagram: 10/09/174 10/09/174 Results 24 hrs Laboratory Tests Test 10/08/17 12:24 10/08/17 17:05 10/08/17 20:30 10/09/17 04:44 Bedside Glucose 204 151 144 White Blood Count 5.4 Red Blood Count 3.19 L Hemoglobin 11.2 L Hematocrit 35.0 L Mean Corpuscular Volume 109.7 H Mean Corpuscular Hemoglobin 35.1 H Mean Corpuscular Hemoglobin Concent 32.0 Red Cell Distribution Width 13.8 Platelet Count 144 Mean Platelet Volume 10.7 H Neutrophils % 52.1 Lymphocytes % 29.2 Monocytes % 14.8 H Eosinophils % 3.3 Basophils % 0.4 Nucleated Red Blood Cells % 0.0 Neutrophils # 2.8 Lymphocytes # 1.6 Monocytes # 0.8 Eosinophils # 0.2 Basophils # 0.0 Nucleated Red Blood Cells # 0.0 Sodium Level 149 H Potassium Level 4.2 Chloride Level 105 Carbon Dioxide Level 32 H Anion Gap 16 Blood Urea Nitrogen 33 #H Creatinine 6.86 H Glucose Level 112 Calcium Level 9.6 Phosphorus Level 4.7 Magnesium Level 2.3 Test 10/09/17 07:59 Bedside Glucose 113 Medications Medications Current Medications Ondansetron HCl (Zofran Tab) 4 mg Q6H PRN PO NAUSEA AND/OR VOMITING; Start 11/10 at 05:30 Acetaminophen (Tylenol Tab) 650 mg Q6H PRN PO PAIN LEVEL 1-3 OR FEVER; Start 10/06/17 at 05:30 Acetaminophen/ Hydrocodone Bitart ([place] (5/325)) 1 tab Q6H PRN PO MODERATE PAIN LEVEL 4-6 Last administered on 10/07/17t 23:39; Admin Dose 1 TAB; Start 10/06/17 at 05:30 Docusate Sodium (Colace) 100 mg Q12H PRN PO CONSTIPATION; Start 10/06/17 at 05 :30 Lactobacillus Acidophilus (Florajen3 Capsule) 1 each BID PO Last administered on 10/09/17 08:17; Admin Dose 1 EACH; Start 10/06/17 at 09:00 Diagnostic Test (Pha) (Accu-Chek) 1 ea 02 XX Last administered on 10/07/17 01 :54; Admin Dose 1 EA; Start 10/07/17 at 02:00 Diagnostic Test (Pha) (Accu-Chek) 1 ea 02 XX Last administered on 10/07/17 01 :54; Admin Dose 1 EA; Start 10/07/17 at 02:00 Miscellaneous Information 1 ea NOTE XX ; Start 10/06/17 at 13:00 Glucose (Glutose) 15 gm Q15M PRN PO DECREASED GLUCOSE; Start 10/06/17 at 13:00 Glucose (Glutose) 22.5 gm Q15M PRN PO DECREASED GLUCOSE; Start 10/06/17 at 13: 00 Dextrose (D50w Syringe) 25 ml Q15M PRN IV DECREASED GLUCOSE; Start 10/06/17 at 13:00 Dextrose (D50w Syringe) 50 ml Q15M PRN IV DECREASED GLUCOSE; Start 10/06/17 at 13:00 Glucagon (Glucagen) 1 mg Q15M PRN IM DECREASED GLUCOSE; Start 10/06/17 at 13: 00 Glucose (Glutose) 15 gm Q15M PRN BUCCAL DECREASED GLUCOSE; Start 10/06/17 at 13:00 Insulin Glargine (Lantus) 8 unit DAILY@20 SC Last administered on 10/08/17 20 :32; Admin Dose 8 UNIT; Start 10/06/17 at 20:00 Metoprolol Succinate (Toprol Xl) 25 mg DAILY PO Last administered on 08:18; Admin Dose 25 MG; Start 10/08/17 at 09:00 Levothyroxine Sodium (Synthroid) 200 mcg DAILY@06 PO Last administered on 10/09 05:17; Admin Dose 200 MCG; Start 10/08/17 at 06:00 Pantoprazole (Protonix Tab) 40 mg DAILY@06 PO Last administered on 10/09/17 05:17; Admin Dose 40 MG; Start 10/08/17 at 06:00 Atorvastatin Calcium (Lipitor) 20 mg HS PO Last administered on 10/08/17 20: 32; Admin Dose 20 MG; Start 10/07/17 at 21:00 Aspirin (Halfprin) 81 mg DAILY PO Last administered on 10/09/17 08:17; Admin Dose 81 MG; Start 10/08/17 at 09:00 Clopidogrel Bisulfate (plaVIX) 75 mg DAILY PO Last administered on 10/09/17 08:17; Admin Dose 75 MG; Start 10/08/17 at 09:00 Isosorbide Mononitrate (Imdur) 60 mg DAILY PO Last administered on 10/09/17 08:17; Admin Dose 60 MG; Start 10/07/17 at 19:00 Olanzapine (Zyprexa) 2.5 mg QHS PO Last administered on 10/08/17 20:32; Admin Dose 2.5 MG; Start 10/07/17 at 21:00 Amlodipine Besylate (Norvasc) 5 mg BID PO Last administered on 10/09/17 08:17 ; Admin Dose 5 MG; Start 10/07/17 at 21:00 Folic Acid (Folic Acid) 1 mg DAILY PO Last administered on 10/09/17 08:17; Admin Dose 1 MG; Start 10/08/17 at 09:00 Nitroglycerin (Nitroglycerin (Sl Tab) 0.4 Mg) 1 tab Q5M PRN SL ANGINA; Start 10/07/17 at 19:00 Hydralazine HCl (Apresoline) 10 mg Q8H PRN IV ELEVATED BLOOD PRESSURE; Start 10/07/17 at 19:00 Magnesium Hydroxide (Milk Of Mag) 30 ml DAILY PRN PO CONSTIPATION; Start 10/07 at 19:00 Divalproex Sodium (Depakote) 250 mg BID PO Last administered on 10/09/17 08: 17; Admin Dose 250 MG; Start 10/07/17 at 21:00 Levothyroxine Sodium (Synthroid) 25 mcg DAILY@06 PO Last administered on 05:17; Admin Dose 25 MCG; Start 10/08/17 at 06:00 DAYSI CORMIER Oct 09, 2017 11:52
[2017-10-09 14:23] VITALS: BP 102/55; RESP 18
[2017-10-09] MEDS ORDERED: HEPARIN 1000 UNITS/NS (A-LINE) 1,000 ML ONE (16:18)
[2017-10-09] MEDS ORDERED: IODIXANOL LOCM 100 ML BTL ONE (16:18)
[2017-10-09] MEDS ORDERED: LIDOCAINE 1% (MDV) 20 ML INJ ONE (16:18)
[2017-10-09] MEDS ORDERED: MIDAZOLAM 1 MG/ML 2 ML INJ ONE (16:19)
[2017-10-09] MEDS ORDERED: FENTAnyl 50 MCG/ML VIAL ONE (16:19)
--- NOTE | 2017-10-09 17:01 | CONS ---
Date/Time of Note Date/Time of Note DATE: 10/09/17 TIME: 17:00 Assessment/Plan Assessment/Plan Additional Assessment/Plan 1. ESRD on HD Three times a week 2.Left upper extremity swelling, it is chronic in nature. AV fistula Doppler suggestive of multifocal stenoses. Possible secondary cellulitis 3. HTN 4. Type II DM 5. Hypothyroidism 6. Hyperlipidemia 7. dementia Plan: IV abx cellulitis BP stable pt follows at [facility] HD center, regular schedule is TTS- plan for HD tomorrow s/p vascular surgery consult - Plan for AVFistuogram by vascular surgery. will follow up Consultation Date/Type/Reason Admit Date/Time Oct 06, 2017 at 13:27 Initial Consult Date 10/07/17 Type of Consultation: NEPHROLOGY Referring Provider: LISA MOODY MD 24 HR Interval Summary Free Text/Dictation plan for HD tomorrow, Awaiting AVFistlogram Exam/Review of Systems Vital Signs Vitals Vital Signs Date Time Temp Pulse Resp B/P Pulse Ox O2 Delivery O2 Flow Rate FiO2 10/09/17 14:23 98.1 50 18 102/55 95 10/06/17 06:42 Room Air Intake and Output 10/08/17 10/08/17 10/09/17 15:00 23:00 07:00 Intake Total 500 ml 525 ml 200 ml Output Total 3500 ml 3000 ml Balance -3000 ml -2475 ml 200 ml Exam Constitutional: alert Respiratory: clear to auscultation, normal air movement Cardiovascular: nl pulses, regular rate and rhythm Gastrointestinal: non-tender, soft Musculoskeletal: other (LUE AVF site swelling ) Extremities: normal pulses 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, nl mental status, nl speech, nl strength Skin: nl turgor Results Result Diagram: 10/09/17 0444 10/09/17 0444 Results 24 hrs Laboratory Tests Test 10/08/17 17:05 10/08/17 20:30 10/09/17 04:44 10/09/17 07:59 Bedside Glucose 151 144 113 White Blood Count 5.4 Red Blood Count 3.19 L Hemoglobin 11.2 L Hematocrit 35.0 L Mean Corpuscular Volume 109.7 H Mean Corpuscular Hemoglobin 35.1 H Mean Corpuscular Hemoglobin Concent 32.0 Red Cell Distribution Width 13.8 Platelet Count 144 Mean Platelet Volume 10.7 H Neutrophils % 52.1 Lymphocytes % 29.2 Monocytes % 14.8 H Eosinophils % 3.3 Basophils % 0.4 Nucleated Red Blood Cells % 0.0 Neutrophils # 2.8 Lymphocytes # 1.6 Monocytes # 0.8 Eosinophils # 0.2 Basophils # 0.0 Nucleated Red Blood Cells # 0.0 Sodium Level 149 H Potassium Level 4.2 Chloride Level 105 Carbon Dioxide Level 32 H Anion Gap 16 Blood Urea Nitrogen 33 #H Creatinine 6.86 H Glucose Level 112 Calcium Level 9.6 Phosphorus Level 4.7 Magnesium Level 2.3 Test 10/09/17 12:29 Bedside Glucose 105 Medications Medications Current Medications Ondansetron HCl (Zofran Tab) 4 mg Q6H PRN PO NAUSEA AND/OR VOMITING; Start 11/10 at 05:30 Acetaminophen (Tylenol Tab) 650 mg Q6H PRN PO PAIN LEVEL 1-3 OR FEVER; Start 10/06/17 at 05:30 Acetaminophen/ Hydrocodone Bitart ([place] (5/325)) 1 tab Q6H PRN PO MODERATE PAIN LEVEL 4-6 Last administered on 10/07/17 23:39; Admin Dose 1 TAB; Start 10/06/17 at 05:30 Docusate Sodium (Colace) 100 mg Q12H PRN PO CONSTIPATION; Start 10/06/17 at 05 :30 Lactobacillus Acidophilus (Florajen3 Capsule) 1 each BID PO Last administered on 10/09/17 08:17; Admin Dose 1 EACH; Start 10/06/17 at 09:00 Diagnostic Test (Pha) (Accu-Chek) 1 ea 02 XX Last administered on 10/07/17 01 :54; Admin Dose 1 EA; Start 10/07/17 at 02:00 Diagnostic Test (Pha) (Accu-Chek) 1 ea 02 XX Last administered on 10/07/17 01 :54; Admin Dose 1 EA; Start 10/07/17 at 02:00 Miscellaneous Information 1 ea NOTE XX ; Start 10/06/17 at 13:00 Glucose (Glutose) 15 gm Q15M PRN PO DECREASED GLUCOSE; Start 10/06/17 at 13:00 Glucose (Glutose) 22.5 gm Q15M PRN PO DECREASED GLUCOSE; Start 10/06/17 at 13: 00 Dextrose (D50w Syringe) 25 ml Q15M PRN IV DECREASED GLUCOSE; Start 10/06/17 at 13:00 Dextrose (D50w Syringe) 50 ml Q15M PRN IV DECREASED GLUCOSE; Start 10/06/17 at 13:00 Glucagon (Glucagen) 1 mg Q15M PRN IM DECREASED GLUCOSE; Start 10/06/17 at 13: 00 Glucose (Glutose) 15 gm Q15M PRN BUCCAL DECREASED GLUCOSE; Start 10/06/17 at 13:00 Insulin Glargine (Lantus) 8 unit DAILY@20 SC Last administered on 10/08/17 20 :32; Admin Dose 8 UNIT; Start 10/06/17 at 20:00 Metoprolol Succinate (Toprol Xl) 25 mg DAILY PO Last administered on 08:18; Admin Dose 25 MG; Start 10/08/17 at 09:00 Levothyroxine Sodium (Synthroid) 200 mcg DAILY@06 PO Last administered on 10/09 05:17; Admin Dose 200 MCG; Start 10/08/17 at 06:00 Pantoprazole (Protonix Tab) 40 mg DAILY@06 PO Last administered on 10/09/17 05:17; Admin Dose 40 MG; Start 10/08/17 at 06:00 Atorvastatin Calcium (Lipitor) 20 mg HS PO Last administered on 10/08/17 20: 32; Admin Dose 20 MG; Start 10/07/17 at 21:00 Aspirin (Halfprin) 81 mg DAILY PO Last administered on 10/09/17 08:17; Admin Dose 81 MG; Start 10/08/17 at 09:00 Clopidogrel Bisulfate (plaVIX) 75 mg DAILY PO Last administered on 10/09/17 08:17; Admin Dose 75 MG; Start 10/08/17 at 09:00 Isosorbide Mononitrate (Imdur) 60 mg DAILY PO Last administered on 10/09/17 08:17; Admin Dose 60 MG; Start 10/07/17 at 19:00 Olanzapine (Zyprexa) 2.5 mg QHS PO Last administered on 10/08/17 20:32; Admin Dose 2.5 MG; Start 10/07/17 at 21:00 Amlodipine Besylate (Norvasc) 5 mg BID PO Last administered on 10/09/17 08:17 ; Admin Dose 5 MG; Start 10/07/17 at 21:00 Folic Acid (Folic Acid) 1 mg DAILY PO Last administered on 10/09/17 08:17; Admin Dose 1 MG; Start 10/08/17 at 09:00 Nitroglycerin (Nitroglycerin (Sl Tab) 0.4 Mg) 1 tab Q5M PRN SL ANGINA; Start 10/07/17 at 19:00 Hydralazine HCl (Apresoline) 10 mg Q8H PRN IV ELEVATED BLOOD PRESSURE; Start 10/07/17 at 19:00 Magnesium Hydroxide (Milk Of Mag) 30 ml DAILY PRN PO CONSTIPATION; Start 10/07 at 19:00 Divalproex Sodium (Depakote) 250 mg BID PO Last administered on 10/09/17 08: 17; Admin Dose 250 MG; Start 10/07/17 at 21:00 Levothyroxine Sodium (Synthroid) 25 mcg DAILY@06 PO Last administered on 05:17; Admin Dose 25 MCG; Start 10/08/17 at 06:00 AMY LIZAMA MD Oct 09, 2017 17:01
--- NOTE | 2017-10-09 17:34 | SIPON ---
Date/Time of Note Date/Time of Note DATE: 10/09/17 TIME: 17:33 Operative Report Preoperative Diagnosis ESRD, CENTRAL STENOSIS Postoperative Diagnosis ESRD, CENTRAL STENOSIS Operation/Procedure Performed LEFT ARM RIGHT UPPER EXTREMITY VENOGRAM, Surgeon see signature line captain assistant NONE Anesthesia: moderate sedation Estimated blood loss: minimal Transfusion Required none Specimen NONE Grafts/Implants none Complications none ASHLEY CRUZ MD Oct 09, 2017 17:34
--- NOTE | 2017-10-09 17:35 | HPN ---
Date/Time of Note Date/Time of Note DATE: 10/09/17 TIME: 17:35 Interval H&P Admission Note Pt. seen H&P reviewed: No system changes ASHLEY CRUZ MD Oct 09, 2017 17:35
--- NOTE | 2017-10-09 19:36 | OPR ---
DATE OF OPERATION: 10/09/2017 SURGEON: Joe Mccann MD PREOPERATIVE DIAGNOSIS: End-stage renal disease and central stenosis. POSTOPERATIVE DIAGNOSIS: End-stage renal disease and central stenosis. ANESTHESIA: Local with sedation. ESTIMATED BLOOD LOSS: Minimal. COMPLICATIONS: None. HEPARIN: None. ACCESS: Left upper extremity fistula 6-Faroese sheath. CLOSURE: Manual compression and 3-0 nylon suture. SEDATION: Under physician supervision, moderate sedation was administered intravenously under prasanna nuous monitoring by the interventional team and attending physician. Pulse oximeter, heart rate and blood pressures were continuously monitored by interventional surgeon. The physicians spent time w as 30 minutes of [id number] sedation time with the patient. INDICATIONS: This is a 61-year-old gentleman who has had history of end-stage renal disease that roxanna swanson underwent a left brachiobasilic fistula creation transposition in which had adequately matured and has been using it over the past year or so. It seems that over the past few months, the patient roxanna swanson developed intermittent left upper extremity edema that would come and go; however, has become more persistent and painful for the patient. This edema has essentially become persistent and further e valuation of the patient's central veins will need to be evaluated for possible fistula salvage and other options. Alternatives and risks were discussed with the patient's son and decision was made to perform a left upper extremity fistulogram with possible intervention and a right venogram in order to evaluate fo r possibility of a new fistula creation. With patient and son we discussed regarding alternatives, risks, and benefits of the angiogram, angioplasty and stenting. The risks including but not limited to bleeding, thrombosis, embolization, myocardial infarction, , stroke, device malfunction, in fection, nephrotoxicity, and the patient has agreed to proceed, and the patient's son has agreed to proceed. PROCEDURE: 1. Ultrasound-guided access of the left upper extremity fistula. 2. Right upper extremity venogram. 3. Second order selection of a tributary of the cephalic vein. FINDINGS: 1. Patent brachiobasilic fistula with multiple collaterals towards axillary vein in which there is retrograde flow into the forearm and hand. This would explain the patient's persistent edema of the hand, forearm and upper arm. 2. Patient has a patent axillary vein at the junction of the cephalic arch and axillary vein, the p atient has a stent that essentially occludes at the flow via the axillary vein. The left subclavian vein seems to be patent and is reconstituted via collaterals. There is no direct drainage of the l eft upper extremity into the left brachiocephalic vein. Left brachiocephalic vein is patent. 3. Superior vena cava is patent. 4. Right upper extremity: The patient has small caliber cephalic vein in the forearm and small in caliber basilic vein in the forearm. The patient has a patent basilic vein that seems to be adequat e in size. The patient's left cephalic vein seems small in caliber. 5. The left axillary vein is not well visualized and seems to be small in caliber. 6. Left subclavian vein is small in caliber and multiple tributaries are identified near distal end of the right subclavian artery and internal jugular vein. 7. Right internal jugular vein is not well visualized. 8. Right brachiocephalic vein and very small in caliber and not well visualized. DESCRIPTION OF PROCEDURE: The patient was brought into the angio suite where he was positioned in s upine position on the fluoroscopic table. Sedation was administered without any complications. The left upper extremity was then shaved, prepped and draped in usual standard sterile fashion. Time o ut and appropriate sites were marked and confirmed. Local anesthesia was infiltrated in the region of the left upper extremity proximal to the antecubital fossa. The fistula was then cannulated with a micro access needle under ultrasound guidance and a guidewire was advanced into the basilic vein under fluoroscopic guidance. The needle was then removed and a microcatheter was placed. A Alfredson wire was then passed into the axillary vein under fluoroscopic guidance followed by a 6-Faroese benitez th over the wire. The sheath was then appropriately flushed with heparinized saline solution. Mult iple stations were performed during our fistulogram that identified patient having a complete occlus ion at the junction of the left cephalic arch and axillary vein. At this point, using a guiding cat heter and a Glidewire, multiple attempts were made to cross this area of stent; however, this was un successful. Using a second order selection, a tributary near the end of the cephalic arch was cannu lated in order to try we were able to bypass the area of occlusion and stenosis; however, this was u nsuccessful. At this point, decision was made to no longer continue the procedure and the patient m ay require an intervention via his iliac system to perhaps try to cross that segment or try to place a Kevin catheter via his left subclavian vein for eventual HeRO catheter creation. At this point, using his IV line of the right upper extremity, a venogram of the right upper extremi ty was performed. Multiple stations were taken and findings are noted above. At this point, the pa tient tolerated the procedure well and all catheters, sheaths and wires were removed. Using a 3-0 n ylon suture, the puncture site of the left upper extremity fistula was closed. Manual compression w as held. The patient tolerated the procedure well and was taken to the postanesthesia care unit in stable condition. Dictated By: JOE CURTIS/MAIRA Conf#: [id number] DID#: [id number] CC: DEIDRA LIRA MD;*EndCC*
[2017-10-09] MEDS: OLANZAPINE 2.5 MG TAB PO SCH (20:28)
[2017-10-09] MEDS: ATORVASTATIN 20 MG TAB PO SCH (20:28)
[2017-10-09] MEDS: INSULIN GLARGINE [LANtus] 3 ML PEN SC SCH (20:33)
[2017-10-09 21:07] VITALS: BP 133/62; RESP 16
[2017-10-10] VITALS (10 sets, daily range): BP systolic 102–170; BP diastolic 49–76; PULSE 58–63; RESP 16
[2017-10-10] MEDS: ACCU-CHEK XX SCH ×2 (01:01)
[2017-10-10] MEDS: LEVOTHYROXINE 100 MCG TAB PO SCH (05:06)
[2017-10-10] MEDS: LEVOTHYROXINE 25 MCG TAB PO SCH (05:06)
[2017-10-10] MEDS: PANTOPRAZOLE (EC) 40 MG TAB PO SCH (05:07)
[2017-10-10 06:21] LABS: BASOPHIL # 0.1 10^3/ul (0.0-0.1); BASOPHILS % 0.9 % (0.0-2.0); EOSINOPHILS # 0.3 10^3/ul (0.0-0.5); EOSINOPHILS % 4.8 % (0.0-7.0); HEMATOCRIT 34.9 % (42.0-52.0); HEMOGLOBIN 11.3 g/dl (14.0-18.0); LYMPHOCYTES # 1.7 10^3/ul (0.8-2.9); LYMPHOCYTES % 29.4 % (15.0-51.0); MEAN CORPUSCULAR HGB CONC 32.4 g/dl (32.0-37.0); MEAN PLATELET VOLUME 10.2 fl (7.4-10.4); MONOCYTE # 0.7 10^3/ul (0.3-0.9); MONOCYTES % 12.3 % (0.0-11.0); NEUTROPHILS % 52.4 % (39.0-77.0); PLATELET COUNT 142 10^3/UL (140-415); RED BLOOD COUNT 3.23 10^6/ul (4.70-6.10); RED CELL DISTRIBUTION WIDTH 13.3 % (11.5-14.5); WHITE BLOOD COUNT 5.8 10^3/ul (4.8-10.8)
[2017-10-10 06:55] LABS: CALCIUM 9.3 mg/dl (8.4-10.2); CREATININE 8.96 mg/dl (0.61-1.24); POTASSIUM 4.4 mmol/L (3.5-5.1)
[2017-10-10 07:03] LABS: MAGNESIUM 2.4 mg/dl (1.7-2.5); PHOSPHORUS 5.7 mg/dl (2.5-4.9)
[2017-10-10] MEDS: INSULIN ASPART [NOVOLOG] 3 ML PEN SC SCH ×4 (07:35→12:00)
[2017-10-10] MEDS: DIVALPROEX (EC) 250 MG TAB PO SCH (08:12)
[2017-10-10] MEDS: ASPIRIN (EC) 81 MG TAB PO SCH (08:12)
[2017-10-10] MEDS: FOLIC ACID 1 MG TAB PO SCH (08:12)
[2017-10-10] MEDS: CLOPIDOGREL 75 MG TAB PO SCH (08:12)
[2017-10-10] MEDS: SEVELAMER CARBONATE 0.8 GM PKT PO SCH ×2 (08:12→11:30)
[2017-10-10] MEDS: L ACIDOPHIL/B LACTIS/B LONGUM CAPSULE PO SCH (08:13)
[2017-10-10] MEDS: METOPROLOL (XL) 25 MG TAB PO SCH (09:00)
[2017-10-10] MEDS: AMLODIPINE 5 MG TAB PO SCH (09:00)
[2017-10-10] MEDS: ISOSORBIDE MONONITRATE(SR)60 MG TAB PO SCH (09:00)
--- NOTE | 2017-10-10 10:30 | PN ---
Date/Time of Note Date/Time of Note DATE: 10/10/17 TIME: 10:14 Assessment/Plan VTE Prophylaxis VTE Prophylaxis Intervention: SCD's Lines/Catheters IV Catheter Type (from [facility]): Saline Lock Urinary Cath still in place: No Assessment/Plan Assessment/Plan 61-year-old man with: 1. Left upper extremity swelling, it is chronic in nature. AV fistula Doppler suggestive of multifocal stenoses, this has been confirmed on fistulogram yesterday, erythema and edema was seeing is most likely secondary to vascular occlusions and definitely less likely secondary to infection.. Patient will not need any further antibiotics at discharge. Blood cultures 1/2 with coag negative staph likely to be contamination, repeat blood cultures and one of the blood cultures on admission remain negative. Appreciate recommendations from Dr. Mccann,, at this point he is recommending additional vascular procedures that are only available at [facility], this needs to be done ANAMARIA but it is not emergent, therefore patient can be discharged home today with outpatient follow-up with Dr. Mccann. Keep left upper extremity elevated. Patient still able to be dialyzed through left upper extremity AV fistula 2. Hypertension: Continue Toprol-XL, isosorbide, amlodipine. Blood pressure better controlled. HD today then discharge home. 3. End-stage renal disease: On hemodialysis, T/T/S. Appreciate assistance from Dr. Aranda, patient currently being dialyzed with plan to be discharged home this afternoon. Continue Renvela 4. Diabetes mellitus type 2: Stable. Blood sugars are stable on slightly decreased dose of Lantus to 8 units subcutaneously nightly and NovoLog 3 units q. before meals. 5. Dementia: Stable. Continue outpatient medications. 6. Hypothyroidism: Continue levothyroxine 7. Hyperlipidemia: Continue lovastatin 8. GERD: Continue proton pump inhibitors Prophylaxis: SCDs for DVT prophylaxis, resume proton pump inhibitors Disposition: Appreciate all recommendations from vascular surgery, I have called the son and left a message to update, discharge planning for today with outpatient follow-up with Dr. Mccann. Also order home health RN check at discharge with [facility] home health. Subjective 24 Hr Interval Summary Free Text/Dictation Patient remained stable, had a discussion with vascular surgery, Dr. Mccann, they attempted to open up the stenosis on the fistula which was not successful, patient is a specific procedure that is not available here at [facility], patient can be discharged home today after dialysis with outpatient vascular intervention at [facility] scheduled with Dr. Mccann. The findings on the left upper extremities are all chronic, unlikely to be infectious, previous blood culture with coag negative staph is likely a contaminant, therefore the patient does not need any additional vancomycin after discharge. 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, nl mental status, nl speech, other (At baseline) Results Result Diagram: 10/10/1752010/10/17520 Results 24 hrs Laboratory Tests Test 10/09/17 12:29 10/09/17 20:31 10/10/17 05:21 10/10/17 08:11 Bedside Glucose 105 89 108 White Blood Count 5.8 Red Blood Count 3.23 L Hemoglobin 11.3 L Hematocrit 34.9 L Mean Corpuscular Volume 108.0 H Mean Corpuscular Hemoglobin 35.0 H Mean Corpuscular Hemoglobin Concent 32.4 Red Cell Distribution Width 13.3 Platelet Count 142 Mean Platelet Volume 10.2 Neutrophils % 52.4 Lymphocytes % 29.4 Monocytes % 12.3 H Eosinophils % 4.8 Basophils % 0.9 Nucleated Red Blood Cells % 0.0 Neutrophils # 3.0 Lymphocytes # 1.7 Monocytes # 0.7 Eosinophils # 0.3 Basophils # 0.1 Nucleated Red Blood Cells # 0.0 Sodium Level 149 H Potassium Level 4.4 Chloride Level 104 Carbon Dioxide Level 29 Anion Gap 20 H Blood Urea Nitrogen 47 #H Creatinine 8.96 #H Glucose Level 95 Calcium Level 9.3 Phosphorus Level 5.7 H Magnesium Level 2.4 Medications Medications Current Medications Ondansetron HCl (Zofran Tab) 4 mg Q6H PRN PO NAUSEA AND/OR VOMITING; Start 11/10 at 05:30 Acetaminophen (Tylenol Tab) 650 mg Q6H PRN PO PAIN LEVEL 1-3 OR FEVER; Start 10/06/17 at 05:30 Acetaminophen/ Hydrocodone Bitart ([place] (5/325)) 1 tab Q6H PRN PO MODERATE PAIN LEVEL 4-6 Last administered on 10/07/17 23:39; Admin Dose 1 TAB; Start 10/06/17 at 05:30 Docusate Sodium (Colace) 100 mg Q12H PRN PO CONSTIPATION; Start 10/06/17 at 05 :30 Lactobacillus Acidophilus (Florajen3 Capsule) 1 each BID PO Last administered on 10/10/17 08:13; Admin Dose 1 EACH; Start 10/06/17 at 09:00 Diagnostic Test (Pha) (Accu-Chek) 1 ea 02 XX Last administered on 10/07/17 01 :54; Admin Dose 1 EA; Start 10/07/17 at 02:00 Diagnostic Test (Pha) (Accu-Chek) 1 ea 02 XX Last administered on 10/07/17 01 :54; Admin Dose 1 EA; Start 10/07/17 at 02:00 Miscellaneous Information 1 ea NOTE XX ; Start 10/06/17 at 13:00 Glucose (Glutose) 15 gm Q15M PRN PO DECREASED GLUCOSE; Start 10/06/17 at 13:00 Glucose (Glutose) 22.5 gm Q15M PRN PO DECREASED GLUCOSE; Start 10/06/17 at 13: 00 Dextrose (D50w Syringe) 25 ml Q15M PRN IV DECREASED GLUCOSE; Start 10/06/17 at 13:00 Dextrose (D50w Syringe) 50 ml Q15M PRN IV DECREASED GLUCOSE; Start 10/06/17 at 13:00 Glucagon (Glucagen) 1 mg Q15M PRN IM DECREASED GLUCOSE; Start 10/06/17 at 13: 00 Glucose (Glutose) 15 gm Q15M PRN BUCCAL DECREASED GLUCOSE; Start 10/06/17 at 13:00 Insulin Glargine (Lantus) 8 unit DAILY@20 SC Last administered on 10/09/17 20 :33; Admin Dose 8 UNIT; Start 10/06/17 at 20:00 Metoprolol Succinate (Toprol Xl) 25 mg DAILY PO Last administered on 08:18; Admin Dose 25 MG; Start 10/08/17 at 09:00 Levothyroxine Sodium (Synthroid) 200 mcg DAILY@06 PO Last administered on 10/10 05:06; Admin Dose 200 MCG; Start 10/08/17 at 06:00 Pantoprazole (Protonix Tab) 40 mg DAILY@06 PO Last administered on 10/10/17 05:07; Admin Dose 40 MG; Start 10/08/17 at 06:00 Atorvastatin Calcium (Lipitor) 20 mg HS PO Last administered on 10/09/17 20: 28; Admin Dose 20 MG; Start 10/07/17 at 21:00 Aspirin (Halfprin) 81 mg DAILY PO Last administered on 10/10/17 08:12; Admin Dose 81 MG; Start 10/08/17 at 09:00 Clopidogrel Bisulfate (plaVIX) 75 mg DAILY PO Last administered on 10/10/17 08:12; Admin Dose 75 MG; Start 10/08/17 at 09:00 Isosorbide Mononitrate (Imdur) 60 mg DAILY PO Last administered on 10/09/17 08:17; Admin Dose 60 MG; Start 10/07/17 at 19:00 Olanzapine (Zyprexa) 2.5 mg QHS PO Last administered on 10/09/17 20:28; Admin Dose 2.5 MG; Start 10/07/17 at 21:00 Amlodipine Besylate (Norvasc) 5 mg BID PO Last administered on 10/09/17 20:37 ; Admin Dose 5 MG; Start 10/07/17 at 21:00 Folic Acid (Folic Acid) 1 mg DAILY PO Last administered on 10/10/17 08:12; Admin Dose 1 MG; Start 10/08/17 at 09:00 Nitroglycerin (Nitroglycerin (Sl Tab) 0.4 Mg) 1 tab Q5M PRN SL ANGINA; Start 10/07/17 at 19:00 Hydralazine HCl (Apresoline) 10 mg Q8H PRN IV ELEVATED BLOOD PRESSURE; Start 10/07/17 at 19:00 Magnesium Hydroxide (Milk Of Mag) 30 ml DAILY PRN PO CONSTIPATION; Start 11/13 /17 at 19:00 Divalproex Sodium (Depakote) 250 mg BID PO Last administered on 10/10/17 08: 12; Admin Dose 250 MG; Start 10/07/17 at 21:00 Levothyroxine Sodium (Synthroid) 25 mcg DAILY@06 PO Last administered on 05:06; Admin Dose 25 MCG; Start 10/08/17 at 06:00 DAYSI CORMIER Oct 10, 2017 10:24
--- NOTE | 2017-10-10 10:31 | PDOCDIS ---
Discharge Instructions CONDITION Patient Condition: Stable HOME CARE INSTRUCTIONS: Special Diet: 1800 AdA/Renal ACTIVITY: Activity Restrictions: Slowly Increase Activity FOLLOW UP/APPOINTMENTS Follow-up Plan Follow-up with primary care physician within 1-2 weeks Resume outpatient hemodialysis, next session scheduled for the Saturday Follow-up with vascular surgery, Dr. Mccann, again next procedure should be scheduled and planned at [facility] per Dr. Mccann' s instructions OTHER ORDERS: Other Orders: Please resume all home medications per previous/outpatient dosing, however patient has been getting Lantus 8 units while in the hospital with stable blood sugars. DAYSI CORMIER Oct 10, 2017 10:31
--- NOTE | 2017-10-10 17:26 | CONS ---
Date/Time of Note Date/Time of Note DATE: 10/10/17 TIME: 17:25 Assessment/Plan Assessment/Plan Additional Assessment/Plan 1. ESRD on HD Three times a week 2.Left upper extremity swelling, it is chronic in nature. AV fistula Doppler suggestive of multifocal stenoses. Possible secondary cellulitis 3. HTN 4. Type II DM 5. Hypothyroidism 6. Hyperlipidemia 7. dementia Plan: IV abx cellulitis BP stable pt follows at [facility] [place] [facility], regular schedule is TTS- s/P HD today will follow up Consultation Date/Type/Reason Admit Date/Time Oct 06, 2017 at 13:27 Initial Consult Date 10/07/17 Type of Consultation: NEPHROLOGY Referring Provider: LISA MOODY MD Exam/Review of Systems Vital Signs Vitals Vital Signs Date Time Temp Pulse Resp B/P Pulse Ox O2 Delivery O2 Flow Rate FiO2 10/10/17 14:00 97.2 50 16 149/72 96 Intake and Output 10/09/17 10/09/17 10/10/17 15:00 23:00 07:00 Intake Total 125 ml 360 ml Balance 125 ml 360 ml Exam Constitutional: alert Respiratory: clear to auscultation, normal air movement Cardiovascular: nl pulses, regular rate and rhythm Gastrointestinal: non-tender, soft Musculoskeletal: other (LUE AVF site swelling ) Extremities: normal pulses 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, nl mental status, nl speech, nl strength Skin: nl turgor Results Result Diagram: 10/10/1752010/10/1721 Results 24 hrs Laboratory Tests Test 10/09/17 20:31 10/10/17 05:21 10/10/17 08:11 Bedside Glucose 89 108 White Blood Count 5.8 Red Blood Count 3.23 L Hemoglobin 11.3 L Hematocrit 34.9 L Mean Corpuscular Volume 108.0 H Mean Corpuscular Hemoglobin 35.0 H Mean Corpuscular Hemoglobin Concent 32.4 Red Cell Distribution Width 13.3 Platelet Count 142 Mean Platelet Volume 10.2 Neutrophils % 52.4 Lymphocytes % 29.4 Monocytes % 12.3 H Eosinophils % 4.8 Basophils % 0.9 Nucleated Red Blood Cells % 0.0 Neutrophils # 3.0 Lymphocytes # 1.7 Monocytes # 0.7 Eosinophils # 0.3 Basophils # 0.1 Nucleated Red Blood Cells # 0.0 Sodium Level 149 H Potassium Level 4.4 Chloride Level 104 Carbon Dioxide Level 29 Anion Gap 20 H Blood Urea Nitrogen 47 #H Creatinine 8.96 #H Glucose Level 95 Calcium Level 9.3 Phosphorus Level 5.7 H Magnesium Level 2.4 AMY LIZAMA MD Oct 10, 2017 17:26
== END 2017-10-10 15:29 | disposition home health service (06) | DRG 314 ==
LOC: E/R 23:15 → PP2 10-06 04:48 → OBSVTOIN 10-06 13:27 → MERGE 10-06 13:27
PROVIDERS: ADMIT Internal Medicine; ATTEND Internal Medicine
PROC: 5A1D70Z Performance of Urinary Filtration, Intermittent, Less than 6 Hours Per Day (ICD-10-PCS; 2017-10-08)
PROC: B50W1ZZ Plain Radiography of Dialysis Shunt/Fistula using Low Osmolar Contrast (ICD-10-PCS; principal; 2017-10-09 17:30)
PROC: B50 Imaging, Veins, Plain Radiography (ICD-10-PCS; 2017-10-09 17:30)
DX: T82.858A Stenosis of other vascular prosthetic devices, implants and grafts, initial encounter (principal); N18.6 End stage renal disease; I12.0 Hypertensive chronic kidney disease with stage 5 chronic kidney disease or end stage renal disease; F03.90 Unspecified dementia, unspecified severity, without behavioral disturbance, psychotic disturbance, mood disturbance, and anxiety; L03.114 Cellulitis of left upper limb; E11.22 Type 2 diabetes mellitus with diabetic chronic kidney disease; Z99.2 Dependence on renal dialysis; Z79.4 Long term (current) use of insulin; Z87.891 Personal history of nicotine dependence; E03.9 Hypothyroidism, unspecified; E78.5 Hyperlipidemia, unspecified; K21.9 Gastro-esophageal reflux disease without esophagitis
CPT/HCPCS: 36415; 36901; 80048; 80069; 80202; 82962; 83036; 83735; 84100; 85025; 87040; 87081; 90935; 93931; 96374; G0378; C1769; C1894; J1644; J1815; J2250; J2270; J2543; J3010; J3370; J7040; J7050; Q9967